=== PATIENT | female | born 1960 | race Caucasian/White ===

== ENCOUNTER 2018-08-30 11:39 | Day surgery (SDC) | payer OTHER ==
--- OUTSIDE RECORDS SUMMARY | 2018-08-30 11:41 | XMS REPORT ---
:1960 [facility] Address [address] [place] [address] Dr. Bassett [address] [place] [id number] Care Team Providers Name Role Phone Unavailable Unavailable Unavailable Problems This patient has no known problems. Allergies, Adverse Reactions, Alerts This patient has no known allergies or adverse reactions. Medications This patient has no known medications.
[2018-08-30] MEDS ORDERED: NA CHLORIDE 0.9% 500 ML ONE (12:10)
[2018-08-30] MEDS ORDERED: PHENYLEPHRINE 10% OPTH 5ML ONE (12:10)
[2018-08-30] MEDS ORDERED: TETRACAINE HCL 0.5% 2ML OPTH ONE (12:12)
[2018-08-30] MEDS ORDERED: CYCLOPENTOLATE 1% OPTH 2 ML ONE (12:12)
[2018-08-30] MEDS ORDERED: LIDOCAINE 2% MPF 5 ML VIAL ONE ×2 (12:12→12:51)
[2018-08-30] MEDS ORDERED: BUPIVACAINE 0.25% PF 30 ML VIAL ONE (12:13)
[2018-08-30 12:20] LABS: Protime INR 1.05
[2018-08-30] MEDS ORDERED: PHENYLEPHRINE 10% OPTH 5ML OPTH ONE ×2 (12:28→12:36)
[2018-08-30] MEDS ORDERED: CYCLOPENTOLATE 1% OPTH 2 ML OPTH ONE ×2 (12:28→12:36)
[2018-08-30] MEDS ORDERED: DUOVISC 1 KIT OPTH ONE (12:29)
[2018-08-30] MEDS ORDERED: NS 0.9% VIAL 10 ML ONE (12:29)
[2018-08-30] MEDS ORDERED: EPINEPHRINE/PF 1 MG/ML AMP ONE (12:29)
[2018-08-30] MEDS ORDERED: BALANCED SALT IRRIG PLAIN 500 ML BTL IRR ONE (12:29)
[2018-08-30] MEDS ORDERED: MOXIFLOXACIN HCL 10 DROPS/ML **OR USE OPTH ONE (12:30)
[2018-08-30] MEDS ORDERED: PROPOFOL 200 MG/20 ML VIAL IV ONE (12:50)
--- NOTE | 2018-08-30 14:15 | P.BOP ---
Preoperative diagnosis: Nuclear sclerotic cataract OS Postoperative diagnosis: Same Primary procedure: Phacoemulsification with IOL OS Estimated blood loss: None Anesthesia: Local (Subtenon's infusion with anesthesia for cataract surgery) Complications: None Implants: ZCB00 +15.0 Transferred to: Other (Day surgery) Condition: Good
[2018-08-30 14:26] VITALS: BP 99/78; TEMP 97.8; O2SAT 100
--- NOTE | 2018-08-31 01:31 | OP ---
Date of Procedure: 08/30/2018 Surgeon: Jackie Christy MD Anesthesiologist: Reginaldo Prater CRNA and Krish Ramirez MD. Preoperative Diagnosis: Nuclear sclerotic cataract, left eye. Operation Performed: Phacoemulsification with intraocular lens implant, left eye. Anesthesia: Per cataract surgery. Complications: None. Description Of Procedure: In day surgery, the patient was prepped with Betadine and draped. A conju nctival incision was made in the inferior nasal quadrant with Colin scissors. A sub-Tenon block c onsisting of a 1:1 mixture of 2% Xylocaine and 0.25% bupivacaine was placed through the conjunctival incision with a blunt cannula. A [place] balloon was placed over the eye and the patient was transferr ed to the operating room. In the operating room the patient was prepped and draped in the usual sterile fashion for ophthalmic surgery. A lid speculum was placed in the left eye. Two paracentesis sites were made superiorly and inferiorly in the limbal cornea. Viscoat was placed in the anterior chamber and a crescent blade wa s used to make a corneal groove and tunnel, and a keratome was used to enter the anterior chamber. P rovisc was placed in the anterior chamber and a 360 degree capsulotomy was performed with a cystitome . The lens was hydrodissected with BSS and rotated freely. The lens was removed with a stop and cho p technique. 18.12 phaco CDE was used to remove the lens. Residual cortex was removed with the irri gation and aspiration. Provisc was placed in the capsular bag. A ZCB00 +15.0 lens was placed in the capsular bag without complications. Irrigation and aspiration were used to remove residual viscoela stic. The paracentesis sites were hydrated with BSS. The wound and paracentesis sites were inspecte d and found to be watertight. Vigamox 0.07 cc was placed intracamerally at the end of the procedure. The eye was irrigated with balanced salt solution. The eye was patched with a soft cotton patch an d Wagoner metal shield. The patient was returned to day surgery in good condition. Comments: Discharge Instructions: Ms. Frias is discharged to home in good condition and is to follow up with Dr. Christy in the morning. JOSÉ/KARI Voice ID: [id number] Report ID: [id number]
== END 2018-08-30 14:58 | disposition home or self-care (01) ==
LOC: OR 11:39
PROVIDERS: ATTEND Ophthalmology Retina Specialist
PROC: 08RK3JZ Replacement of Left Lens with Synthetic Substitute, Percutaneous Approach (ICD-10-PCS; principal; 2018-08-30 12:00)
DX: H25.12 Age-related nuclear cataract, left eye (principal); E11.9 Type 2 diabetes mellitus without complications; I10 Essential (primary) hypertension; I48.91 Unspecified atrial fibrillation; E78.5 Hyperlipidemia, unspecified; E07.9 Disorder of thyroid, unspecified; F32.9 Major depressive disorder, single episode, unspecified; Z79.01 Long term (current) use of anticoagulants; Z88.6 Allergy status to analgesic agent; Z83.3 Family history of diabetes mellitus; Z80.9 Family history of malignant neoplasm, unspecified; Z83.518 Family history of other specified eye disorder
CPT/HCPCS: 36415; 82962; 84132; 85610; J0171; J2704

== ENCOUNTER 2019-01-11 18:18 | Emergency (ER) | payer OTHER, SELFPAY ==
--- OUTSIDE RECORDS SUMMARY | 2019-01-11 18:19 | XMS REPORT ---
:1960 [facility] Address [address] [place] [address] Dr. Bass[address] [place] [id number] Care Team Providers Name Role Phone Unavailable Unavailable Unavailable Problems This patient has no known problems. Allergies, Adverse Reactions, Alerts This patient has no known allergies or adverse reactions. Medications This patient has no known medications.
[2019-01-11 18:51] LABS: Absolute Lymphocytes (CBC) 2.6 K/uL (0.7-4.9); Absolute Monocytes 0.9 K/uL (0.1-1.3); Absolute Neutrophil 3.9 K/uL (1.8-8.0); Basophils % 1.5 % (0-1.3); Hematocrit 45.9 % (36.0-45.0); Lymphocytes % 33.2 % (15.3-44.8); MPV 9.5 fL (7.6-11.3); Monocytes % 11.1 % (3.3-12.3); RBC Red Blood Cell Count 5.01 M/uL (3.86-4.86)
[2019-01-11 18:54] LABS: Protime INR 1.26
[2019-01-11 19:15] LABS: ALT/SGPT 26 U/L (12-78); AST/SGOT 19 U/L (15-37); Alkaline Phosphatase 109 U/L (45-117); BUN Blood Urea Nitrogen 12 mg/dL (7-18); Bicarbonate 31 mmol/L (21-32); Bilirubin Direct 0.2 mg/dL (0-0.2); Bilirubin Total 0.8 mg/dL (0.2-1.0); Glucose Level 93 mg/dL (74-106); Magnesium 2.3 mg/dL (1.8-2.4); NT PRO-BNP 280 pg/mL (<125); Potassium 3.9 mmol/L (3.5-5.1); Protein, Total 8.1 g/dL (6.4-8.2); Sodium Level 144 mmol/L (136-145); Troponin (Emerg Dept Use Only) < 0.02 ng/mL (0.0-0.045)
--- NOTE | 2019-01-11 19:44 | RAD REPORT ---
EXAM DESCRIPTION: RAD - Chest Single View - 01/11/2019 7:11 pm CLINICAL HISTORY: Chest pain COMPARISON: July 2008 TECHNIQUE: AP portable chest image was obtained 1907 hours . FINDINGS: No focal lung parenchymal process. Lung markings similar to comparison. Heart size upper n ormal. No vascular engorgement. Heart size is similar comparison. No measurable pleural effusion and no pneumothorax. No acute bony abnormality seen. No acute aortic findings suspected. IMPRESSION: No acute cardiopulmonary process. No significant change comparison.
--- NOTE | 2019-01-11 20:58 | EDPHYS ---
Physician Documentation [facility] Name: Loren Frias Age: 58 yrs Sex: Female : 1960 Arrival Date: 01/11/2019 Time: 18:21 Bed 7 Private MD: Elise Hernandez H ED Physician Enrique Stevenson HPI: 01/12 01:34 This 58 yrs old Female presents to ER via Wheelchair with complaints of tw4 Palpitations. 01:34 The patient presents with a history of heart skipping beats. Context: The symptoms tw4 occur at rest. Onset: The symptoms/episode began/occurred today. Duration: The patient or guardian reports a single episode, that is still ongoing, but improving. Modifying factors: The symptoms are aggravated by nothing. The symptoms are alleviated by nothing. Associated signs and symptoms: The patient has no apparent associated signs or symptoms. The patient has not experienced similar symptoms in the past. Historical: - Allergies: 01/11 18:41 cinnamint; tw2 18:41 Morphine; tw2 18:41 Sinemet; tw2 - Home Meds: 18:41 Klor-Con M20 20 mEq Oral TbTQ 1 tab 2 times per day [Active]; Lasix 80 mg Oral tab 1 tw2 tab once daily [Active]; magnesium oxide 400 mg Oral cap twice a day [Active]; lisinopril 5 mg Oral tab 1 tab once daily [Active]; Multaq 400 mg Oral tab 1 tab 2 times per day [Active]; Synthroid 175 mcg Oral tab 1 tab once daily [Active]; Xarelto 20 mg Oral tab 1 tab once daily [Active]; melatonin 10 mg oral cap [Active]; Lopressor 50 mg Oral tab 1 tab 2 times per day [Active]; trulicity once a week [Active]; Tresiba FlexTouch U-100 100 unit/mL (3 mL) subcutaneous inpn [Active]; gabapentin 100 mg oral cap 3 caps 3 times per day [Active]; Metformin Oral [Active]; Lipitor 40 mg Oral tab 1 tab once daily [Active]; - PMHx: 18:41 Diabetes - IDDM; High Cholesterol; Hypertension; Atrial Fib; Hypothyroidism; tw2 - PSHx: 18:41 Cholecystectomy; Hysterectomy; Hernia repair; Lap Band; tw2 - Immunization history:: Adult Immunizations. - Social history:: Smoking status: . - Ebola Screening: : Patient denies travel to an Ebola-affected area in the 21 days before illness onset. ROS: 01/12 01:34 Constitutional: Negative for fever, chills, and weight loss, Eyes: Negative for injury, tw4 pain, redness, and discharge, ENT: Negative for injury, pain, and discharge, Respiratory: Negative for shortness of breath, cough, wheezing, and pleuritic chest pain, Abdomen/GI: Negative for abdominal pain, nausea, vomiting, diarrhea, and constipation, Back: Negative for injury and pain, MS/Extremity: Negative for injury and deformity, Skin: Negative for injury, rash, and discoloration, Neuro: Negative for headache, weakness, numbness, tingling, and seizure. Cardiovascular: Positive for palpitations, Negative for chest pain, edema, orthopnea. Exam: 01:34 Constitutional: This is a well developed, well nourished patient who is awake, alert, tw4 and in no acute distress. Head/Face: Normocephalic, atraumatic. Chest/axilla: Normal chest wall appearance and motion. Nontender with no deformity. No lesions are appreciated. Respiratory: Lungs have equal breath sounds bilaterally, clear to auscultation and percussion. No rales, rhonchi or wheezes noted. No increased work of breathing, no retractions or nasal flaring. Abdomen/GI: Soft, non-tender, with normal bowel sounds. No distension or tympany. No guarding or rebound. No evidence of tenderness throughout. Back: No spinal tenderness. No costovertebral tenderness. Full range of motion. MS/ Extremity: Pulses equal, no cyanosis. Neurovascular intact. Full, normal range of motion. Neuro: Awake and alert, GCS 15, oriented to person, place, time, and situation. Cranial nerves II-XII grossly intact. Motor strength 5/5 in all extremities. Sensory grossly intact. Cerebellar exam normal. Normal gait. 01:34 Cardiovascular: Rate: normal, Rhythm: irregular, Pulses: no pulse deficits are appreciated. Vital Signs: 01/11 18:37 BP 146 / 76; Pulse 74; Resp 19; Temp 97.4(TE); Pulse Ox 98% on R/A; Weight 117.93 kg tw2 (R); Height 5 ft. 5 in. (165.10 cm); Pain 0/10; 19:09 BP 127 / 63; Pulse 68; Resp 20; Pulse Ox 98% on R/A; Pain 0/10; aa1 20:00 BP 120 / 74; Pulse 68; Resp 18; Pulse Ox 96% on R/A; Pain 0/10; aa1 21:12 BP 120 / 61; Pulse 67; Resp 18; Temp 97.7; Pulse Ox 97% on R/A; Pain 0/10; aa1 18:37 Body Mass Index 43.27 (117.93 kg, 165.10 cm) tw2 MDM: 19:33 Patient medically screened. tw4 01/12 01:37 Differential diagnosis: arrythmia. Data reviewed: vital signs, nurses notes. Data tw4 interpreted: air sampling and monitoring: rhythm is normal sinus rhythm. Test interpretation: by ED physician or midlevel provider: ECG. Counseling: I had a detailed discussion with the patient and/or guardian regarding: the historical points, exam findings, and any diagnostic results supporting the discharge/admit diagnosis. Special discussion: I discussed with the patient/guardian in detail that at this point there is no indication for admission to the hospital. It is understood, however, that if the symptoms persist or worsen the patient needs to return immediately for re-evaluation. ED course: Pt rested comfortably on the stretcher in the ED had no additional complaints.. 01/11 18:34 Order name: Basic Metabolic Panel; Complete Time: 20:19 sv 01/11 20:19 Interpretation: Normal except: GFR 51. tw01/11 18:34 Order name: CBC with Diff; Complete Time: 20:19 sv 01/11 20:19 Interpretation: Normal except: RBC 5.01; HGB 15.2; HCT 45.9; RDW 15.7; BASO% 1.5. tw01/11 18:34 Order name: LFT's; Complete Time: 20:19 sv 01/11 20:19 Interpretation: Normal except: GLOB 4.1; A/G 1.0. tw01/11 18:34 Order name: Magnesium; Complete Time: 20:19 sv 01/11 20:20 Interpretation: Within normal limits: MG 2.3. tw01/11 18:34 Order name: NT PRO-BNP; Complete Time: 20:19 sv 30 20:19 Interpretation: Abnormal: NT PRO-BNP 280. tw4 01/11 18:34 Order name: PT-INR; Complete Time: 20:19 sv 30 20:19 Interpretation: Normal except: PT 14.7. tw4 01/11 18:34 Order name: Troponin (emerg Dept Use Only); Complete Time: 20:20 sv 01/11 20:20 Interpretation: Within normal limits: TROPED < 0.02. tw4 01/11 18:34 Order name: XRAY Chest (1 view); Complete Time: 20:20 sv 01/11 18:34 Order name: EKG; Complete Time: 18:35 sv 01/11 18:34 Order name: Cardiac monitoring; Complete Time: 18:52 sv 01/11 18:34 Order name: EKG - Nurse/Tech; Complete Time: 18:52 sv 01/11 18:34 Order name: IV Saline Lock; Complete Time: 18:52 sv 01/11 18:34 Order name: Labs collected and sent; Complete Time: 18:52 sv 01/11 18:34 Order name: O2 Per Protocol; Complete Time: 18:52 sv 01/11 18:34 Order name: O2 Sat Monitoring; Complete Time: 18:52 sv EC:37 Rate is 56 beats/min. Rhythm is regular, Normal Sinus Rhythm with Occasional PVCs. QRS tw4 [place] is Normal. [place] interval is normal. QRS interval is normal. QT interval is normal. No Q waves. T waves are Normal. No ST changes noted. Clinical impression: Normal ECG. Interpreted by me. Reviewed by me. Administered Medications: No medications were administered Disposition: 01/11/19 20:58 Discharged to Home. Impression: Ventricular premature depolarization, Palpitations. - Condition is Stable. - Discharge Instructions: Palpitations, Premature Ventricular Contraction. - Medication Reconciliation Form, Thank You Letter, Antibiotic Education, Prescription Opioid Use form. - Follow up: Elise Hernandez DO; When: Upon discharge from the Emergency Department; Reason: If symptoms return, Recheck today's complaints, Continuance of care. - Problem is new. - Symptoms have improved. Signatures: Dispatcher [employer] EDRadha Perez RN RN sv Leanne Gallardo RN RN aa1 Justina Ashton RN RN tw2 Enrique Stevenson MD MD tw4 Corrections: (The following items were deleted from the chart) 01/11 21:14 20:58 01/11/2019 20:58 Discharged to Home. Impression: Ventricular premature aa1 depolarization; Palpitations. Condition is Stable. Forms are Medication Reconciliation Form, Thank You Letter, Antibiotic Education, Prescription Opioid Use. Follow up: Elise Hernandez; When: Upon discharge from the Emergency Department; Reason: If symptoms return, Recheck today's complaints, Continuance of care. Problem is new. Symptoms have improved. tw4
--- NOTE | 2019-01-11 20:58 | ER ---
Nurse's Notes [facility] Name: Loren Frias Age: 58 yrs Sex: Female : 1960 Arrival Date: 01/11/2019 Time: 18:21 Bed 7 Private MD: Elise Hernandez H Diagnosis: Ventricular premature depolarization;Palpitations Presentation: 01/11 18:30 Presenting complaint: Patient states: it started the last day or so ago, and it tw2 resolved himself, but today it started again around 4pm, my chest feels weird, pt denies pain or sob. Presenting complaint: Child states: "my dad one month ago as well". Transition of care: patient was not received from another setting of care. Onset of symptoms was January 11, 2019. Risk Assessment: Do you want to hurt yourself or someone else? Patient reports no desire to harm self or others. Initial Sepsis Screen: Does the patient meet any 2 criteria? No. Patient's initial sepsis screen is negative. Does the patient have a suspected source of infection? No. Patient's initial sepsis screen is negative. Care prior to arrival: None. 18:30 Method Of Arrival: Wheelchair tw2 18:30 Acuity: ALLA 3 tw2 Triage Assessment: 18:37 General: Appears in no apparent distress. obese, well groomed, Behavior is calm, tw2 cooperative, appropriate for age. Pain: Denies pain. Cardiovascular: Reports palpitations. Historical: - Allergies: 18:41 cinnamint; tw2 18:41 Morphine; tw2 18:41 Sinemet; tw2 - Home Meds: 18:41 Klor-Con M20 20 mEq Oral TbTQ 1 tab 2 times per day [Active]; Lasix 80 mg Oral tab 1 tw2 tab once daily [Active]; magnesium oxide 400 mg Oral cap twice a day [Active]; lisinopril 5 mg Oral tab 1 tab once daily [Active]; Multaq 400 mg Oral tab 1 tab 2 times per day [Active]; Synthroid 175 mcg Oral tab 1 tab once daily [Active]; Xarelto 20 mg Oral tab 1 tab once daily [Active]; melatonin 10 mg oral cap [Active]; Lopressor 50 mg Oral tab 1 tab 2 times per day [Active]; trulicity once a week [Active]; Tresiba FlexTouch U-100 100 unit/mL (3 mL) subcutaneous inpn [Active]; gabapentin 100 mg oral cap 3 caps 3 times per day [Active]; Metformin Oral [Active]; Lipitor 40 mg Oral tab 1 tab once daily [Active]; - PMHx: 18:41 Diabetes - IDDM; High Cholesterol; Hypertension; Atrial Fib; Hypothyroidism; tw2 - PSHx: 18:41 Cholecystectomy; Hysterectomy; Hernia repair; Lap Band; tw2 - Immunization history:: Adult Immunizations. - Social history:: Smoking status: . - Ebola Screening: : Patient denies travel to an Ebola-affected area in the 21 days before illness onset. Screenin:41 Abuse screen: Denies threats or abuse. Nutritional screening: No deficits noted. tw2 Tuberculosis screening: No symptoms or risk factors identified. Fall Risk Secondary diagnosis (15 points) impaired mobility. Assessment: 18:40 General: Appears in no apparent distress. Behavior is calm, cooperative. Pain: Denies hb pain. Neuro: Level of Consciousness is awake, alert, obeys commands, Oriented to person, place, time, situation. Cardiovascular: Heart tones S1 S2 present Capillary refill < 3 seconds Patient's skin is warm and dry. Rhythm is sinus rhythm with multifocal PVCs. Respiratory: Airway is patent Respiratory effort is even, unlabored, Respiratory pattern is regular, symmetrical, Breath sounds are clear bilaterally. GI: No signs and/or symptoms were reported involving the gastrointestinal system. : No signs and/or symptoms were reported regarding the genitourinary system. EENT: No signs and/or symptoms were reported regarding the EENT system. Derm: Skin is intact, is healthy with good turgor. Musculoskeletal: No signs and/or symptoms reported regarding the musculoskeletal system. 19:09 Reassessment: Patient appears in no apparent distress at this time. Patient and/or aa1 family updated on plan of care and expected duration. Pain level reassessed. Patient is alert, oriented x 3, equal unlabored respirations, skin warm/dry/pink. Pt awaiting initial assessment from ER provider Patient denies pain at this time. 20:35 Reassessment: Patient appears in no apparent distress at this time. Patient and/or aa1 family updated on plan of care and expected duration. Pain level reassessed. Patient is alert, oriented x 3, equal unlabored respirations, skin warm/dry/pink. Awaiting provider reassessment. 21:12 Reassessment: Patient appears in no apparent distress at this time. Patient is alert, aa1 oriented x 3, equal unlabored respirations, skin warm/dry/pink. Discussed d/c \\T\\ f/u instructions with pt \\T\\ family; denies questions or concerns at this time. Ambulates to lobby with steady gait. Patient denies pain at this time. Patient states feeling better. Vital Signs: 18:37 BP 146 / 76; Pulse 74; Resp 19; Temp 97.4(TE); Pulse Ox 98% on R/A; Weight 117.93 kg tw2 (R); Height 5 ft. 5 in. (165.10 cm); Pain 0/10; 19:09 BP 127 / 63; Pulse 68; Resp 20; Pulse Ox 98% on R/A; Pain 0/10; aa1 20:00 BP 120 / 74; Pulse 68; Resp 18; Pulse Ox 96% on R/A; Pain 0/10; aa1 21:12 BP 120 / 61; Pulse 67; Resp 18; Temp 97.7; Pulse Ox 97% on R/A; Pain 0/10; aa1 18:37 Body Mass Index 43.27 (117.93 kg, 165.10 cm) tw2 ED Course: 18:21 Patient arrived in ED. mr 18:21 Elise Hernandez DO is Private Physician. mr 18:30 Placed in gown. Adult w/ patient. hall monitor on. Pulse ox on. NIBP on. tw2 18:37 Triage completed. tw2 18:37 Arm band placed on. tw2 18:40 Inserted saline lock: 22 gauge in right antecubital area, using aseptic technique. hb Blood collected. 18:49 Mary Tapia, JULIO CESAR is Primary Nurse. hb 19:07 X-ray completed. Portable x-ray completed in exam room. Patient tolerated procedure mh1 well. 19:10 XRAY Chest (1 view) In Process Unspecified. EDMS 19:23 Enrique Stevenson MD is Attending Physician. tw4 20:57 Elise Hernandez DO is Referral Physician. tw4 21:12 No provider procedures requiring assistance completed. IV discontinued, intact, aa1 bleeding controlled, No redness/swelling at site. Pressure dressing applied. Administered Medications: No medications were administered Outcome: 20:58 Discharge ordered by . tw4 21:12 Discharged to home ambulatory, with family. aa1 21:12 Condition: good 21:12 Discharge instructions given to patient, family, Instructed on discharge instructions, follow up and referral plans. Demonstrated understanding of instructions, follow-up care. 21:14 Patient left the ED. aa1 Signatures: Dispatcher [employer] EDMS Leanne Gallardo RN RN aa1 Mary Grace Joaquin mr RockDi 1 Mary Tapia RN RN Justina Ashton RN RN tw2 Enrique Stevenson MD MD tw4
[2019-01-11 21:19] VITALS: TEMP 97.4
[2019-01-11 21:22] VITALS: BP 120/74; O2SAT 96
--- NOTE | 2019-01-12 16:52 | EKG ---
Test Date: 2019-01-11 Test Time: 18:41:02 Mail Sorter: MEASUREMENT RESULTS: Intervals: Rate: 71 FL: 156 QRSD: 74 QT: 424 QTc: 460 [place]: P: 41 FL: 156 QRS: 14 T: 18 INTERPRETIVE STATEMENTS: Sinus rhythm with frequent premature ventricular complexes Otherwise normal ECG Compared to ECG 11/30/2013 18:22:41 Ventricular premature complex(es) now present Sinus bradycardia no longer present Electronically Signed On 01-12-19 16:50:59 CDT by Agustín Mata
== END 2019-01-11 21:14 | disposition home or self-care (01) ==
LOC: ER 18:18
DX: I49.3 Ventricular premature depolarization (principal); I10 Essential (primary) hypertension; E11.9 Type 2 diabetes mellitus without complications; Z79.4 Long term (current) use of insulin; I48.91 Unspecified atrial fibrillation; E03.9 Hypothyroidism, unspecified; Z79.01 Long term (current) use of anticoagulants; Z88.5 Allergy status to narcotic agent; Z88.8 Allergy status to other drugs, medicaments and biological substances; Z91.018 Allergy to other foods
CPT/HCPCS: 36415; 71045; 80048; 80076; 83735; 83880; 84484; 85025; 85610; 93005; 99284

== ENCOUNTER 2021-03-20 12:07 | Inpatient (IN) | payer OTHER ==
--- NOTE | 2021-03-20 13:20 | RAD REPORT ---
EXAM DESCRIPTION: RAD - Chest Single View - 03/20/2021 1:10 pm CLINICAL HISTORY: SOB COMPARISON: Chest Single View dated 01/11/2019; Chest Pa And Lat (2 Views) dated 07/28/2018; CHEST SI NGLE VIEW dated 11/30/2013; CHEST SINGLE VIEW dated 06/26/2012 FINDINGS: Cardiomegaly. Increased prominence of the pulmonary vasculature. No fractures seen. No foc al consolidative airspace disease. IMPRESSION: Vascular congestion without overt edema.
[2021-03-20 13:39] LABS: Protime INR 1.03
[2021-03-20 13:46] LABS: Absolute Lymphocytes (CBC) 0.5 K/uL (0.7-4.9); Basophils % 0.2 % (0-1.3); Hematocrit 43.4 % (36.0-45.0); Lymphocytes % 9.3 % (15.3-44.8); MPV 9.8 fL (7.6-11.3); RBC Red Blood Cell Count 4.63 M/uL (3.86-4.86)
[2021-03-20 13:47] LABS: Albumin 3.6 g/dL (3.4-5.0); Bilirubin Direct 0.3 mg/dL (0-0.2); Bilirubin Total 0.9 mg/dL (0.2-1.0); Magnesium 1.9 mg/dL (1.8-2.4); Potassium 4.2 mmol/L (3.5-5.1); Protein, Total 7.9 g/dL (6.4-8.2); Troponin (Emerg Dept Use Only) 0.12 ng/mL (0.0-0.045)
--- OUTSIDE RECORDS SUMMARY | 2021-03-20 15:29 | XMS REPORT | Continuity of Care Document ---
:1960 Author Organization [facility] t Address [address] [place] [address] Care Team Providers Name Role Phone Lab, Fam Pob I Attending Clinician Unavailable Angelique COX, S Attending Clinician Problems This patient has no known problems. Allergies, Adverse Reactions, Alerts This patient has no known allergies or adverse reactions. Medications This patient has no known medications. Procedures This patient has no known procedures. Encounters Start End Encounter Admission Attending Care Care Encounter Source Date/Time Date/Time Type Type Clinicians Facility Department ID 2021-03-20 2021-03-20 Laboratory Lab, [facility] [id number] 11:13:01 11:33:01 Only Fam P[facility] I [facility] [id number] [place] [id number] Professio [id number] nal [address] 2021-03-08 2021-03-08 [facility] [id number] 11:11:12 23:59:00 [facility]counter [facility] [id number] [facility] [id number] Specialti [id number] es [address] [place] 2021-03-08 2021-03-08 Office [facility] [id number] 10:48:33 11:03:33 Visit [facility] [id number] Surgical [id number] Specialti [id number] es 198 [place] Results This patient has no known results.
--- NOTE | 2021-03-20 15:41 | EDPHYS ---
Physician Documentation [facility] Name: Loren Frias Age: 60 yrs Sex: Female : 1960 Arrival Date: 03/20/2021 Time: 12:12 Bed 6 Private MD: ED Physician Sacha Zee HPI: 03/20 14:36 This 60 yrs old Female presents to ER via Wheelchair with complaints of kdr Shortness Of Breath. 14:36 The patient has shortness of breath with light activity. Onset: The symptoms/episode kdr began/occurred gradually, 1 week(s) ago. Duration: The symptoms are intermittent. The patient's shortness of breath is aggravated by exertion, light activity, is alleviated by rest. 03/21 12:04 Associated signs and symptoms: Pertinent positives: diaphoresis, Pertinent negatives: kdr chest pain, dizziness, fever, hemoptysis, loss of consciousness, numbness in extremities, visual changes, vomiting. Severity of symptoms: At their worst the symptoms were mild moderate just prior to arrival, in the emergency department the symptoms are unchanged. The patient has not experienced similar symptoms in the past. The patient has not recently seen a physician. Many of the members of the patient's family have had COVID and she is concerned that she may now have COVID. Historical: - Allergies: 03/20 12:28 Morphine; ll1 12:28 Sinemet; ll1 - PMHx: 12:28 Atrial Fib; Diabetes - IDDM; High Cholesterol; Hypertension; Hypothyroidism; ll1 - Immunization history:: Client reports having NOT received the Covid vaccine. Flu vaccine is up to date. - Social history:: Smoking status: Patient denies any tobacco usage or history of. ROS: 03/21 12:04 Constitutional: Negative for fever, chills, and weight loss, Eyes: Negative for injury, kdr pain, redness, and discharge, ENT: Negative for injury, pain, and discharge, Neck: Negative for injury, pain, and swelling, Cardiovascular: Negative for chest pain, palpitations, and edema, Abdomen/GI: Negative for abdominal pain, nausea, vomiting, diarrhea, and constipation, Back: Negative for injury and pain, : Negative for injury, bleeding, discharge, and swelling, MS/Extremity: Negative for injury and deformity, Skin: Negative for injury, rash, and discoloration, Neuro: Negative for headache, weakness, numbness, tingling, and seizure activity. Psych: Negative for depression, anxiety, suicide ideation, homicidal ideation, and hallucinations, Allergy/Immunology: Negative for hives, rash, and allergies, Endocrine: Negative for neck swelling, polydipsia, polyuria, polyphagia, and marked weight changes. Respiratory: Positive for dyspnea on exertion, shortness of breath, When seen at urgent care, she was informed that she had low oxygen saturation but she did not know how low. Exam: 03/20 15:05 ECG was reviewed by the Attending Physician. kdr 03/21 12:04 Constitutional: This is a well developed, well nourished patient who is awake, alert, kdr and in no acute distress. Head/Face: Normocephalic, atraumatic. Eyes: Pupils equal round and reactive to light, extra-ocular motions intact. Lids and lashes normal. Conjunctiva and sclera are non-icteric and not injected. Cornea within normal limits. Periorbital areas with no swelling, redness, or edema. Neck: Trachea midline, no thyromegaly or masses palpated, and no cervical lymphadenopathy. Supple, full range of motion without nuchal rigidity, or vertebral point tenderness. No Meningismus. Chest/axilla: Normal chest wall appearance and motion. Nontender with no deformity. No lesions are appreciated. Cardiovascular: Regular rate and rhythm with a normal S1 and S2. No gallops, murmurs, or rubs. Normal PMI, no JVD. No pulse deficits. Abdomen/GI: Soft, non-tender, with normal bowel sounds. No distension or tympany. No guarding or rebound. No evidence of tenderness throughout. Back: No spinal tenderness. No costovertebral tenderness. Full range of motion. Skin: Warm, dry with normal turgor. Normal color with no rashes, no lesions, and no evidence of cellulitis. MS/ Extremity: Pulses equal, no cyanosis. Neurovascular intact. Full, normal range of motion. Neuro: Awake and alert, GCS 15, oriented to person, place, time, and situation. Cranial nerves II-XII grossly intact. Motor strength 5/5 in all extremities. Sensory grossly intact. Cerebellar exam normal. Normal gait. Psych: Awake, alert, with orientation to person, place and time. Behavior, mood, and affect are within normal limits. Respiratory: the patient does not display signs of respiratory distress, Respirations: normal, Breath sounds: rales, that are mild, are located in both bases, stridor, is not appreciated, wheezing: is not appreciated. Vital Signs: 03/20 12:26 BP 153 / 78; Pulse 104; Resp 20; Temp 99.8; Pulse Ox 95% ; Weight 120.2 kg; Height 5 ll1 ft. 4 in. (162.56 cm); Pain 0/10; 13:59 BP 139 / 82; Pulse 104; Resp 20 S; Pulse Ox 93% on R/A; jd3 15:05 BP 144 / 90; Pulse 105; Resp 21 S; Pulse Ox 96% on R/A; jd3 17:21 BP 135 / 61; Pulse 109; Resp 20 S; Pulse Ox 93% on R/A; jd3 12:26 Body Mass Index 45.49 (120.20 kg, 162.56 cm) ll1 MDM: 15:40 Patient medically screened. kdr 03/21 12:04 Data reviewed: vital signs, nurses notes, lab test result(s), radiologic studies. kdr Counseling: I had a detailed discussion with the patient and/or guardian regarding: the historical points, exam findings, and any diagnostic results supporting the discharge/admit diagnosis, lab results, radiology results, the need for further work-up and treatment in the hospital. 03/20 12:42 Order name: Basic Metabolic Panel; Complete Time: 14:35 kdr 03/20 12:42 Order name: CBC with Diff; Complete Time: 14:35 kdr 03/20 12:42 Order name: LFT's; Complete Time: 14:35 kdr 03/20 12:42 Order name: Magnesium; Complete Time: 14:35 kdr 03/20 12:42 Order name: NT PRO-BNP; Complete Time: 14:35 kdr 03/20 12:42 Order name: PT-INR; Complete Time: 14:35 kdr 03/20 12:42 Order name: Troponin (emerg Dept Use Only); Complete Time: 14:35 kdr 03/20 13:11 Order name: COVID-19 : Document "Date of Symptom Onset" if Symptomatic. jd3 03/20 15:18 Order name: SARS-COV-2 RT PCR; Complete Time: 00:02 EDMS 03/20 15:28 Order name: C-Reactive Protein; Complete Time: 00:02 EDMS 03/20 15:28 Order name: Ferritin; Complete Time: 00:02 EDMS 03/20 18:13 Order name: Glucose, Ancillary Testing; Complete Time: 00:02 EDMS 03/20 18:45 Order name: Creatine Phosphokinase; Complete Time: 00:02 EDMS 03/20 18:45 Order name: CKMB Creatine Kinase MB; Complete Time: 00:02 EDMS 03/20 18:45 Order name: Troponin I; Complete Time: 00:02 EDMS 03/20 18:57 Order name: Procalcitonin; Complete Time: 00:02 EDMS 03/20 21:41 Order name: Glucose, Ancillary Testing; Complete Time: 00:02 EDMS 03/21 00:43 Order name: Glucose, Ancillary Testing; Complete Time: 12:09 EDMS 03/21 01:29 Order name: Glucose Level; Complete Time: 12:09 EDMS 03/21 03:29 Order name: Glucose Level; Complete Time: 12:09 EDMS 03/21 04:34 Order name: CBC with Automated Diff; Complete Time: 12:09 EDMS 03/21 05:09 Order name: Creatine Phosphokinase; Complete Time: 12:09 EDMS 03/21 05:09 Order name: CKMB Creatine Kinase MB; Complete Time: 12:09 EDMS 03/21 05:09 Order name: Troponin I; Complete Time: 12:09 EDMS 03/21 06:53 Order name: Basic Metabolic Panel; Complete Time: 12:09 EDMS 03/21 06:53 Order name: Lipid Profile; Complete Time: 12:09 EDMS 03/21 06:53 Order name: T4 Free; Complete Time: 12:09 EDMS 03/21 06:53 Order name: Magnesium; Complete Time: 12:09 EDMS 03/21 06:53 Order name: Thyroid Stimulating Hormone; Complete Time: 12:09 EDMS 03/20 12:42 Order name: XRAY Chest (1 view); Complete Time: 14:35 kdr 03/20 12:42 Order name: EKG; Complete Time: 12:43 kdr 03/20 12:42 Order name: Cardiac monitoring; Complete Time: 12:47 kdr 03/20 12:42 Order name: EKG - Nurse/Tech; Complete Time: 13:41 kdr 03/20 12:42 Order name: IV Saline Lock; Complete Time: 13:10 kdr 03/20 12:42 Order name: Labs collected and sent; Complete Time: 13:10 kdr 03/20 12:42 Order name: O2 Per Protocol; Complete Time: 12:47 kdr 03/20 12:42 Order name: O2 Sat Monitoring; Complete Time: 12:47 kdr 03/21 07:50 Order name: RAD; Complete Time: 12:09 EDMS EC/07 15:05 Rate is 109 beats/min. Rhythm is regular, Sinus tachycardia with No ectopy. QRS [place] is kdr Normal. AL interval is normal. QRS interval is normal. QT interval is normal. Clinical impression: Sinus tachycardia. Administered Medications: No medications were administered Disposition Summary: 03/20/21 15:40 Hospitalization Ordered Hospitalization Status: Observation kdr Provider: Claudy Varner Condition: Fair kdr Problem: new kdr Symptoms: have improved kdr Bed/Room Type: Standard kdr Location: Intensive Care Unit(03/21/21 06:20) tl1 Room Assignment: 1-(03/21/21 06:20) tl1 Diagnosis - Heart failure, unspecified kdr - Shortness of breath kdr - SARS-associated coronavirus as the cause of diseases classified elsewhere kdr Forms: - Medication Reconciliation Form kdr - SBAR form kdr Signatures: Dispatcher [employer] EDWV Sacha Zee MD MD kdr Eloise Cardona RN RN ss Augustine Huynh, CLIENT SERVICES REPRESENTATIVE-C CLIENT SERVICES REPRESENTATIVE-Cla1 Yasmeen Buitrago RN RN tl1 Dick Walton RN RN 1 Corrections: (The following items were deleted from the chart) 14:11 13:12 CORONAVIRUS ordered. EDWV EDWV 16:46 15:40 Telemetry/MedSurg (observation) kdr 16:46 15:40 kdr 03/21 06:20 03/20 16:46 [facility] ER HOLD ss tl1 03/21 06:20 03/20 16:46 ERHOLD- ss tl1
--- NOTE | 2021-03-20 15:41 | ER ---
Nurse's Notes [facility] Name: Loren Frias Age: 60 yrs Sex: Female : 1960 Arrival Date: 03/20/2021 Time: 12:12 Bed 6 Private MD: Diagnosis: Heart failure, unspecified;Shortness of breath;SARS-associated coronavirus as the cause of diseases classified elsewhere Presentation: 03/20 12:26 Chief complaint: Patient states: Cough and SOB since Thursday night. No known fever. Went ll1 to [facility] this morning, was sent in for eval. Had low O2 sats but she doesn't know how low. Coronavirus screen: Client denies travel out of the [place] in the last 14 days. chills, cough unrelated to allergies, difficulty breathing, fatigue, shortness of breath, Client presents with at least one sign or symptom that may indicate coronavirus-19. Standard/surgical mask placed on the client. Ebola Screen: Patient denies travel to an Ebola-affected area in the 21 days before illness onset. Initial Sepsis Screen: Does the patient meet any 2 criteria? HR > 90 bpm. No. Patient's initial sepsis screen is negative. Does the patient have a suspected source of infection? Yes: Productive cough/pneumonia. Risk Assessment: Do you want to hurt yourself or someone else? Patient reports no desire to harm self or others. Onset of symptoms was March 17, 2021. 12:26 Method Of Arrival: Wheelchair ll1 12:26 Acuity: ALLA 3 ll1 Historical: - Allergies: 12:28 Morphine; ll1 12:28 Sinemet; ll1 - PMHx: 12:28 Atrial Fib; Diabetes - IDDM; High Cholesterol; Hypertension; Hypothyroidism; ll1 - Immunization history:: Client reports having NOT received the Covid vaccine. Flu vaccine is up to date. - Social history:: Smoking status: Patient denies any tobacco usage or history of. Screenin:02 Abuse screen: Denies threats or abuse. Nutritional screening: No deficits noted. jd3 Tuberculosis screening: No symptoms or risk factors identified. Fall Risk Ambulatory Aid- None/Bed Rest/Nurse Assist (0 pts). Gait- Normal/Bed Rest/Wheelchair (0 pts) Mental Status- Oriented to own ability (0 pts). Total Huerta Fall Scale indicates No Risk (0-24 pts). Assessment: 12:46 General: Appears in no apparent distress. uncomfortable, Behavior is calm, cooperative, jd3 appropriate for age. Pain: Complains of pain in back Quality of pain is described as aching. Neuro: Level of Consciousness is awake, alert, obeys commands, Oriented to person, place, time, situation. Cardiovascular: Capillary refill < 3 seconds Patient's skin is warm and dry. Rhythm is sinus tachycardia. Respiratory: Reports shortness of breath on exertion cough that is persistent Airway is patent Respiratory effort is even, unlabored, Respiratory pattern is regular, symmetrical. GI: Reports loss of appetite. : No signs and/or symptoms were reported regarding the genitourinary system. EENT: No signs and/or symptoms were reported regarding the EENT system. Derm: Skin is intact, Skin is dry, Skin is normal, Skin temperature is warm. Musculoskeletal: Circulation, motion, and sensation intact. Range of motion: intact in all extremities. 13:59 Reassessment: Patient appears in no apparent distress at this time. No changes from jd3 previously documented assessment. Patient and/or family updated on plan of care and expected duration. Pain level reassessed. Patient is alert, oriented x 3, equal unlabored respirations, skin warm/dry/pink. 15:05 Reassessment: Patient appears in no apparent distress at this time. Patient and/or jd3 family updated on plan of care and expected duration. Pain level reassessed. Patient is alert, oriented x 3, equal unlabored respirations, skin warm/dry/pink. hospitalist at bedside. 17:20 Reassessment: Patient appears in no apparent distress at this time. Patient and/or jd3 family updated on plan of care and expected duration. Pain level reassessed. Patient is alert, oriented x 3, equal unlabored respirations, skin warm/dry/pink. charting continued in [facility]. Vital Signs: 12:26 BP 153 / 78; Pulse 104; Resp 20; Temp 99.8; Pulse Ox 95% ; Weight 120.2 kg; Height 5 ll1 ft. 4 in. (162.56 cm); Pain 0/10; 13:59 BP 139 / 82; Pulse 104; Resp 20 S; Pulse Ox 93% on R/A; jd3 15:05 BP 144 / 90; Pulse 105; Resp 21 S; Pulse Ox 96% on R/A; jd3 17:21 BP 135 / 61; Pulse 109; Resp 20 S; Pulse Ox 93% on R/A; jd3 12:26 Body Mass Index 45.49 (120.20 kg, 162.56 cm) ll1 ED Course: 12:12 Patient arrived in ED. mr 12:28 Triage completed. ll1 12:28 Arm band placed on Patient placed in an exam room, on a stretcher. ll1 12:42 Sacha Zee MD is Attending Physician. kdr 12:46 Ike Bah, RN is Primary Nurse. jd3 13:10 XRAY Chest (1 view) In Process Unspecified. EDMS 13:10 Inserted saline lock: 22 gauge in right antecubital area, using aseptic technique. jd3 Blood collected. 14:02 Patient has correct armband on for positive identification. Bed in low position. Call jd3 light in reach. Side rails up X2. monitor worker on. Pulse ox on. NIBP on. 15:39 Claudy Varner DO is Hospitalizing Provider. kdr 17:21 No provider procedures requiring assistance completed. Patient admitted, IV remains in jd3 place. 19:11 Primary Nurse role handed off by Ike Bah RN eb Administered Medications: No medications were administered Outcome: 15:40 Decision to Hospitalize by Provider. kdr 17:21 Admitted to ER Hold. Please see [facility] for further documentation. jd3 17:21 Condition: stable 17:21 Instructed on the need for admit, Demonstrated understanding of instructions. 03/21 08:10 Patient left the ED. ll1 Signatures: Dispatcher [employer] EDMS Sacha Zee MD MD kdr Rivera, Mary mr Ike Bah, RN RN jJaney Anand Lynsay, RN RN 1
--- NOTE | 2021-03-20 16:14 | P.HP ---
Certification for Inpatient Patient admitted to: Observation With expected LOS: <2 Midnights Patient will require the following post-hospital care: None Practitioner: I am a practitioner with admitting privileges, knowledge of patient current condition, hospital course, and medical plan of care. Services: Services provided to patient in accordance with Admission requirements found in Title 42 Section 412.3 of the Code of Federal Regulations Patient History Date of Service: 03/20/21 Primary Care Provider: Dr. Hernandez Reason for admission: Shortness of breath History of Present Illness: 60-year-old female with history of atrial fibrillation on chronic anticoagulation therapy, diabetes mellitus type 2 insulin-dependent, hypertension, hypothyroidism, hyperlipidemia and CHF. Patient presented to the emergency room with increasing shortness of breath. She had gone to urgent care earlier and they noted that she was slightly hypoxic. Patient denies any fever, chills, nausea or vomiting. Several family embers have tested positive for Covid. She was worried that she had a Covid infection. She denies any significant chest pain. In the ER patient was evaluated. Vital signs stable. Patient on room air at this time. Chest x-ray shows some vascular congestion. White count 5.8, hemoglobin 14.7. Platelet count 123. Sodium 134, potassium 4.2. BUN of 11, creatinine 0.7 with a GFR 75. Glucose 344. Troponin 0 0.12 BNP 372. AST 32, ALT 28. CRP and ferritin pending. Patient was positive for Covid. EKG shows no significant ST changes. Patient admitted for further evaluation and treatment. Patient reports that she had been taking Lasix in the past but this was discontinued by cardiology. She also reports patient had cardiac stress test several months ago which was unremarkable. Allergies carbidopa [From Sinemet] Allergy (Mild, Verified 08/30/18 12:26) Hives levodopa [From Sinemet] Allergy (Mild, Verified 08/30/18 12:26) Hives morphine Adverse Reaction (Intermediate, Verified 08/30/18 12:26) VOMITING Home medications list reviewed: Yes Home Medications: Atorvastatin Calcium [Lipitor*] 40 mg PO BEDTIME 08/26/18 Cholecalciferol (Vitamin D3) [Vitamin D 1000 Iu Tab*] 1,000 unit PO BID 08/26/18 Dronedarone [Multaq*] 400 mg PO BID 08/26/18 Dulaglutide [Trulicity] 1.5 mg SQ EVERY 7TH DAY 08/26/18 Empagliflozin [Jardiance] 10 mg PO DAILY 08/26/18 Furosemide [Lasix] 80 mg PO DAILY 08/26/18 Insulin Degludec [Tresiba Flextouch U-100] 0 unit SQ DAILY 08/26/18 Levothyroxine Sodium [Synthroid] 150 mcg PO DAILY 08/26/18 Magnesium Oxide [Magnesium] 400 mg PO BID 08/26/18 Melatonin 5 mg PO BEDTIME 08/26/18 Metformin HCl [Metformin HCl ER] 750 mg PO BID 08/26/18 Metoprolol Tartrate [Lopressor*] 50 mg PO BID 08/26/18 Potassium Chloride [Klor-Con M20] 20 meq PO BID 08/26/18 Rivaroxaban [Xarelto*] 20 mg PO DAILY AFTER SUPPER 08/26/18 lisinopriL [Prinivil*] 5 mg PO [id number] 08/26/18 - Past Medical/Surgical History Diabetic: Yes -: Atrial fibrillation -: Chronic anticoagulation therapy -: Diabetes mellitus type 2 insulin-dependent -: Hypertension -: Diastolic CHF -: Hyperlipidemia -: Hypothyroidism -: GERD -: Obesity -: LAP-BAND -: Cholecystectomy -: Hysterectomy -: Right wrist surgery -: Left ankle surgery Psychosocial/ Personal History: Patient lives at home. She is a . - Family History Family History: Reviewed- Non-Contributory - Social History Smoking Status: Never smoker Alcohol use: No CD- Drugs: No Caffeine use: Yes Place of Residence: Home Review of Systems General: As per HPI Eyes: Unremarkable ENT: Unremarkable Respiratory: Shortness of Breath, SOB with Excertion, As per HPI Cardiovascular: Edema, As per HPI Gastrointestinal: Unremarkable Genitourinary: Unremarkable Musculoskeletal: Unremarkable Integumentary: As per HPI Neurological: Unremarkable Lymphatics: Unremarkable Physical Examination - Physical Exam General: Alert, In no apparent distress, Oriented x3, Cooperative HEENT: Atraumatic, Normocephalic, PERRLA, Mucous membr. moist/pink Neck: Supple Respiratory: Crackles/rales (Mild crackles to the bases) Cardiovascular: Normal pulses, Regular rate/rhythm Gastrointestinal: Normal bowel sounds, No tenderness, No masses, No rebound, No guarding Musculoskeletal: No erythema, No tenderness, No warmth Integumentary: No tenderness/swelling, No erythema, No warmth, No cyanosis Neurological: Normal speech, Normal strength at 5/5 x4 extr, Normal tone, Normal affect - Studies Laboratory Data (last 24 hrs) 03/20/21 13:08: PT 11.9, INR 1.03 03/20/21 13:08: WBC 5.80, Hgb 14.7, Hct 43.4, Plt Count 123 L 03/20/21 13:08: Sodium 134 L, Potassium 4.2, BUN 11, Creatinine 0.78, Glucose 344 H, Magnesium 1.9, Total Bilirubin 0.9, AST 32, ALT 28, Alkaline Phosphatase 102 Assessment and Plan - Plan Impression: Shortness of breath likely secondary to acute on chronic diastolic CHF with elevated troponin likely related to ischemic demand complicated with Covid 19 infection Atrial fibrillation on chronic anticoagulation therapy Diabetes mellitus type 2 insulin-dependent with hyperglycemia Hypertension Hyperlipidemia Hypothyroidism GERD Obesity Plan: Shortness of breath likely secondary to acute on chronic diastolic CHF with elevated troponin likely related to ischemic demand complicated with Covid 19 infection: Patient admitted for further evaluation and treatment. Patient with slight elevation in troponin. Will monitor and trend troponin and monitor telemetry. This is likely ischemic demand from acute on chronic diastolic CHF. Will start IV Lasix 20 mg twice daily. Due to her Covid positive test, will treat with IV Solu-Medrol and vitamin supplementation. Patient appears to be asymptomatic not requiring any oxygen. We will monitor this closely. We will check to see if the patient will qualify for home oxygen at discharge. Will consult cardiology for further recommendation. Will obtain echocardiogram. Recent cardiac stress tests as patient reports which was unremarkable. Will discuss with cardiology. Anticipate improvement over the next 24 to 40 hours with likely discharge at that time. Atrial fibrillation on chronic anticoagulation therapy: Continue with Xarelto and Multaq. Diabetes mellitus type 2 insulin-dependent with hyperglycemia: Continue with Lantus. Will check hemoglobin A1c. Sliding scale in place. Hypertension: We will continue with Lopressor. Hyperlipidemia: We will continue with Lipitor Hypothyroidism:: We will continue with Synthroid GERD: We will continue with Protonix Obesity: Lifestyle modification education provided. DVT prophylaxis: Xarelto CODE STATUS: Full code Advance care [id number] minutes: Home at discharge. Discharge Plan: Home Plan to discharge in: 48 Hours - Advance Directives Does patient have a Living Will: Yes Does patient have a Durable POA for Healthcare: Yes - Code Status/Comfort Care Code Status Assessed: Yes (Patient is full code) Time Spent Managing Pts Care (In Minutes): 55
[2021-03-20 16:23] LABS: C-Reactive Protein 86.1 mg/L (<3.00); Ferritin 243.6 ng/mL (8-388)
[2021-03-20] MEDS: METHYLPREDNISOLONE 40 MG INJ IV SCH (17:00)
[2021-03-20] MEDS: FUROSEMIDE 20 MG/ 2ML VIAL IV SCH (17:00)
[2021-03-20] MEDS ORDERED: ONDANSETRON 4 MG/2 ML VIAL IV PRN (17:23)
[2021-03-20] MEDS ORDERED: D50W 25 GM/50 ML SYRINGE IV PRN (17:23)
[2021-03-20] MEDS ORDERED: GLUCAGON 1 MG/VIAL IM PRN (17:23)
[2021-03-20] MEDS ORDERED: BENZONATATE 100 MG CAP PO PRN (17:23)
[2021-03-20] MEDS: INSULIN -REGULAR HUMAN 50 UNIT/0.5 ML ML SQ SCH ×3 (17:45→22:30)
[2021-03-20] MEDS: RIVAROXABAN 20 MG TABLET PO SCH (18:00)
[2021-03-20] MEDS ORDERED: METHYLPREDNISOLONE 40 MG INJ ONE (18:14)
[2021-03-20] MEDS ORDERED: FUROSEMIDE 20 MG/ 2ML VIAL ONE (18:14)
[2021-03-20] MEDS ORDERED: INSULIN -REGULAR HUMAN 50 UNIT/0.5 ML ML ONE ×2 (18:27→22:53)
[2021-03-20 18:45] LABS: CKMB Creatine Kinase MB 1.1 ng/mL (1.0-3.6); Troponin I 0.21 ng/mL (0.0-0.045)
[2021-03-20] MEDS: MAGNESIUM OXIDE 400 MG TAB PO SCH (21:00)
[2021-03-20] MEDS: ATORVASTATIN 40 MG TAB PO SCH (21:00)
[2021-03-20] MEDS ORDERED: DRONEDARONE 400 MG TAB PO SCH (21:00)
[2021-03-20] MEDS: ASCORBIC ACID 500 MG TABLET PO SCH (21:00)
[2021-03-20] MEDS ORDERED: METOPROLOL TAR 50 MG TAB PO SCH (21:00)
[2021-03-20] MEDS: GABAPENTIN 300 MG CAP PO SCH (21:00)
[2021-03-20] MEDS ORDERED: INSULIN GLARGINE 100 UNITS/ML SQ SCH (21:00)
[2021-03-20] MEDS: THIAMINE HCL 100 MG TABLET PO SCH (21:00)
[2021-03-20] MEDS ORDERED: THIAMINE HCL 100 MG TABLET ONE (21:25)
[2021-03-20] MEDS ORDERED: INSULIN GLARGINE 100 UNITS/ML SQ ONE (21:25)
[2021-03-20] MEDS ORDERED: METOPROLOL TAR 50 MG TAB ONE (21:25)
[2021-03-20] MEDS ORDERED: ASCORBIC ACID 500 MG TABLET ONE (21:26)
[2021-03-20] MEDS ORDERED: MAGNESIUM OXIDE 400 MG TAB ONE (21:26)
[2021-03-20] MEDS ORDERED: ATORVASTATIN 20 MG TAB ONE (21:26)
[2021-03-20] MEDS ORDERED: GABAPENTIN 300 MG CAP ONE (21:26)
[2021-03-21] MEDS ORDERED: METOPROLOL TARTRATE 5 MG/5 ML INJ IV STA ×3 (00:15→00:25)
[2021-03-21] MEDS ORDERED: METOPROLOL TARTRATE 5 MG/5 ML INJ IV ONE ×3 (00:21→00:28)
[2021-03-21] MEDS ORDERED: D50W 25 GM/50 ML SYRINGE IV PRN ×3 (00:45→03:34)
[2021-03-21] MEDS ORDERED: GLUCAGON 1 MG/VIAL IM PRN ×3 (00:45→03:34)
[2021-03-21] MEDS ORDERED: INSULIN -REGULAR HUMAN 50 UNIT/0.5 ML ML IV ONE ×3 (00:45→21:30)
[2021-03-21] MEDS ORDERED: DIGOXIN 0.25 MG/ML AMP IV ONE (00:45)
[2021-03-21] MEDS ORDERED: INSULIN -REGULAR HUMAN 50 UNIT/0.5 ML ML ONE (00:58)
[2021-03-21] MEDS: METHYLPREDNISOLONE 40 MG INJ IV SCH (01:00)
[2021-03-21] MEDS ORDERED: DIGOXIN 0.25 MG/ML AMP ONE (01:16)
[2021-03-21] MEDS ORDERED: AMIODARONE HCL 150 MG in D5W 100 ML IV STA (01:36)
[2021-03-21] MEDS ORDERED: AMIODARONE HCL 900 MG in Dextrose 5%-Water 482 ML IV SCH (02:00)
[2021-03-21] MEDS ORDERED: AMIODARONE HCL 150 MG/3 ML INJ IV ONE ×3 (02:19→02:26)
[2021-03-21] MEDS ORDERED: D5W 100 ML IV ONE (02:20)
[2021-03-21] MEDS ORDERED: AMIODARONE IN DEXTROSE,ISO-OSM 360 MG/200 ML BAG IV ONE (02:35)
[2021-03-21] MEDS ORDERED: METHYLPREDNISOLONE 40 MG INJ ONE (03:18)
[2021-03-21] MEDS ORDERED: INSULIN -REGULAR HUMAN 50 UNIT/0.5 ML ML SQ ONE (03:34)
[2021-03-21] MEDS: INSULIN -REGULAR HUMAN 50 UNIT/0.5 ML ML SQ SCH ×7 (03:40→21:00)
[2021-03-21 04:32] LABS: Absolute Lymphocytes (CBC) 0.8 K/uL (0.7-4.9); Basophils % 0.1 % (0-1.3); Hematocrit 45.2 % (36.0-45.0); Lymphocytes % 13.2 % (15.3-44.8); MPV 10.1 fL (7.6-11.3); RBC Red Blood Cell Count 4.77 M/uL (3.86-4.86)
[2021-03-21 04:56] LABS: CKMB Creatine Kinase MB 3.5 ng/mL (1.0-3.6); Troponin I 0.24 ng/mL (0.0-0.045)
--- NOTE | 2021-03-21 06:13 | P.PN ---
Subjective Date of Service: 03/21/21 Primary Care Provider: Dr. Hernandez Chief Complaint: Shortness of breath Subjective: Improving, Other (Patient reports improvement. Was placed on Amiodarone overnight but stopped this am due to Bradycardia. She was on antibiotics for toothache recently. Had some diarrhea. BS elevated.) Physical Examination - Vital Signs Temperature: 97.8 F Blood Pressure: 122/71 Pulse: 53 Respirations: 22 Pulse Ox (%): 93 - Studies Laboratory Data (last 24 hrs) 03/20/21 13:08: PT 11.9, INR 1.03 03/20/21 13:08: WBC 5.80, Hgb 14.7, Hct 43.4, Plt Count 123 L 03/20/21 13:08: Sodium 134 L, Potassium 4.2, BUN 11, Creatinine 0.78, Glucose 344 H, Magnesium 1.9, Total Bilirubin 0.9, AST 32, ALT 28, Alkaline Phosphatase 102 Assessment & Plan Discharge Plan: Home Plan to discharge in: 48 Hours Physician Review Additional Text: CXR: COMPARISON: Chest Single View dated 01/11/2019; Chest Pa And Lat (2 Views) dated 07/28/2018; CHEST SINGLE VIEW dated 11/30/2013; CHEST SINGLE VIEW dated 06/26/2012 FINDINGS: Cardiomegaly. Increased prominence of the pulmonary vasculature. No fractures seen. No focal consolidative airspace disease. IMPRESSION: Vascular congestion without overt edema. Follow-up chest x-ray: FINDINGS: No peripheral mass or consolidation. Heart, vasculature and lung markings are all prominent. Pattern is not clearly different. Chest findings are more pronounced than seen on the 2019 study. CHF/ volume overload remains the primary consideration. Trachea is midline. No measurable pleural effusion and no pneumothorax. No acute bony abnormality seen. No acute aortic findings suspected. IMPRESSION: Mild CHF/volume overload pattern similar to comparison. Physical Exam: General: Alert, In no apparent distress, Oriented x3, Cooperative HEENT: Atraumatic, Normocephalic, PERRLA, Mucous membr. moist/pink Neck: Supple Respiratory: Overall improved. Overall clear. Currently room air. 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 Was on Amiodarone last night due to Afib with RVR. This was stopped this am due to sinus bradycardia. Will change to her Multaq. She is on Xarelto. Chest x-ray shows improvement. Case discussed with cardiology. Await echocardiogram. Cardiology recommends to continue treatment of CHF. Continue with Multaq and Xarelto. Will change Solu-Medrol to prednisone. Diabetes needs to be better controlled. Will adjust Lantus. Anticipate improvement likely home tomorrow if significantly improved. No cardiac intervention at this time. Atrial fibrillation on chronic anticoagulation therapy with RVR: Was placed on Amiodarone last night but this was discontinued this am due to sinus bradycardia . Continue with Multaq and Xarelto as recommended by cardiology. 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 Increased Lantus and continue to adjust. Will check hemoglobin A1c. Sliding scale in place. Hypertension: Will continue with Lopressor. Hold Lisinopril. Hyperlipidemia: Will continue with Lipitor Hypothyroidism:: Will continue with Synthroid GERD: Will continue with Protonix Obesity: Lifestyle modification education provided. Diarrhea: Recently on Antibiotics for toothache. Will check for c Diff colitis. Add Lactobacillus. DVT prophylaxis: Xarelto CODE STATUS: Full code Advance care [id number] minutes: Home at discharge. Time Spent Managing Pts Care (In Minutes): 55
[2021-03-21 06:44] LABS: Magnesium 2.5 mg/dL (1.8-2.4); Potassium 4.2 mmol/L (3.5-5.1); Thyroid Stimulating Hormone 1.68 uIU/mL (0.360-3.740)
--- NOTE | 2021-03-21 07:50 | RAD REPORT ---
EXAM DESCRIPTION: RAD - Chest Single View - 03/21/2021 6:10 am CLINICAL HISTORY: Dyspnea, Follow up CHF/COVID COMPARISON: Portable March 20December 2018 TECHNIQUE: AP portable chest image was obtained 03/21/2021 6:10 am . FINDINGS: No peripheral mass or consolidation. Heart, vasculature and lung markings are all prominen t. Pattern is not clearly different. Chest findings are more pronounced than seen on the 2019 study. CHF/ volume overload remains the primary consideration. Trachea is midline. No measurable pleural eff usion and no pneumothorax. No acute bony abnormality seen. No acute aortic findings suspected. IMPRESSION: Mild CHF/volume overload pattern similar to comparison.
--- NOTE | 2021-03-21 08:05 | EKG ---
Test Date: 2021-03-20 Test Time: 13:32:56 Bankruptcy Attorney: ALFREDA MEASUREMENT RESULTS: Intervals: Rate: 109 NH: 136 QRSD: 72 QT: 356 QTc: 479 [place]: P: 47 NH: 136 QRS: 4 T: 24 INTERPRETIVE STATEMENTS: Sinus tachycardia Otherwise normal ECG Compared to ECG 01/11/2019 18:41:02 Sinus rhythm no longer present Ventricular premature complex(es) no longer present Electronically Signed On 03-21-21 08:03:41 CDT by Earl Burnette
[2021-03-21] MEDS: DULOXETINE 30 MG CAP PO SCH (08:37)
[2021-03-21] MEDS: MULTIVITAMIN TAB PO SCH (08:37)
[2021-03-21] MEDS: MAGNESIUM OXIDE 400 MG TAB PO SCH ×2 (08:37→20:57)
[2021-03-21] MEDS: VITAMIN D 1000 UNIT TAB PO SCH (08:37)
[2021-03-21] MEDS: THIAMINE HCL 100 MG TABLET PO SCH ×2 (08:37→20:56)
[2021-03-21] MEDS: ASCORBIC ACID 500 MG TABLET PO SCH ×3 (08:37→20:56)
[2021-03-21] MEDS: LACTOBACILLUS/ACIDOPHILUS TAB PO SCH ×3 (08:37→20:57)
[2021-03-21] MEDS: GABAPENTIN 300 MG CAP PO SCH ×3 (08:37→20:56)
[2021-03-21] MEDS: ZINC SULFATE 220 MG CAP PO SCH (08:37)
[2021-03-21] MEDS: FUROSEMIDE 20 MG/ 2ML VIAL IV SCH ×2 (08:38→16:44)
[2021-03-21] MEDS: LEVOTHYROXINE SOD 0.075 MG TAB PO SCH (08:39)
[2021-03-21] MEDS: METOPROLOL TAR 50 MG TAB PO SCH ×2 (09:00→20:56)
[2021-03-21] MEDS ORDERED: INSULIN GLARGINE 100 UNITS/ML SQ SCH ×2 (09:00)
[2021-03-21] MEDS ORDERED: predniSONE 10 MG TAB PO SCH (09:00)
[2021-03-21] MEDS: lisinopriL 5 MG TAB PO SCH (09:00)
--- NOTE | 2021-03-21 10:11 | CON ---
Date of Consultation: 03/21/[address] Varner service on 03/20/2021. History Of Present Illness: Ms. Frias is a 60-year-old woman. She is known to me from previous off ice visit and admission in the past. She has a history of paroxysmal atrial fibrillation, diabetes, hypertension, high cholesterol, obesity, and hypothyroidism. The patient came in with shortness of b reath and was diagnosed with COVID pneumonia. While she was in the hospital, she had normal blood pr essure, but she was noted to be in atrial fibrillation with rapid ventricular response and I was cons ulted. She had a troponin of 0.12. She is being treated with Lasix and being treated with COVID. T here is an echocardiogram pending on her for today. Throughout the night, we had to switch her from Multaq to amiodarone. She converted to sinus rhythm. Her amiodarone was stopped because she became bradycardic. She had received some digoxin. She does take Xarelto at home. She denied any chest pa in. Past Medical History: As stated above. Allergies: TO LEVODOPA, CARBIDOPA AND MORPHINE. Review of Systems: Negative. Social History: Negative. Family History: Negative. Medications: At home include Lipitor, Multaq, Trulicity, Neurontin, insulin, Synthroid, magnesium Lo pressor, potassium, Xarelto, zolpidem, and lisinopril. Physical Examination: Vital Signs: Stable. She was afebrile. By the time I saw her, she was in a sinus leeanne. HEENT: Negative. Neck: Supple without any bruit, lymphadenopathy, JVD, or thyromegaly. Chest: Clear to auscultation and percussion. Cardiac: Revealed a regular rhythm and rate without any murmurs, gallops, or rubs. Abdomen: Benign. Extremities: Revealed no clubbing, cyanosis, or edema. Diagnostic Data: She is COVID positive. Has COVID pneumonia. Troponin of 0.12 and 0.21. BNP is 37 2. Her glucose level was 448. Impression And Plan: 1.Shortness of breath secondary to COVID pneumonia. 2.Atrial fibrillation, paroxysmal. I think we need to put her back on the Multaq. Continue Xarelto . Stop the IV amiodarone, use IV Lopressor or IV digoxin as needed. 3.Elevated troponin and slightly elevated BNP secondary to a combination of atrial fibrillation and COVID pneumonia. I would repeat an echocardiogram, but no plan for coronary intervention. 4.Her other problems include poorly controlled diabetes, poorly controlled hypertension. Her dyslip idemia is well controlled. Her hypothyroidism is well controlled. I will continue present regimen. Get another echocardiogram. I will continue to follow her. JAMEEL/KARI Voice ID: [id number] Report ID: [id number]
[2021-03-21] MEDS: DRONEDARONE 400 MG TAB PO SCH ×2 (11:22→20:58)
[2021-03-21] MEDS: INSULIN GLARGINE 100 UNITS/ML SQ SCH ×2 (14:40→21:24)
[2021-03-21] MEDS: RIVAROXABAN 20 MG TABLET PO SCH (16:44)
[2021-03-21] MEDS: ATORVASTATIN 40 MG TAB PO SCH (20:57)
[2021-03-22] MEDS ORDERED: INSULIN -REGULAR HUMAN 50 UNIT/0.5 ML ML SQ ONE (00:30)
[2021-03-22] MEDS: LEVOTHYROXINE SOD 0.075 MG TAB PO SCH (05:31)
--- NOTE | 2021-03-22 05:46 | P.DS ---
Admission Date: 03/21/21 Discharge Date: 03/22/21 Primary Care Provider: Dr. Hernandez Disposition: ROUTINE DISCHARGE Discharge Condition: GOOD Reason for Admission: Shortness of breath Consultations: Cardiology-Dr. Burnette Procedures: CXR: COMPARISON: Chest Single View dated 01/11/2019; Chest Pa And Lat (2 Views) dated 07/28/2018; CHEST SINGLE VIEW dated 11/30/2013; CHEST SINGLE VIEW dated 06/26/2012 FINDINGS: Cardiomegaly. Increased prominence of the pulmonary vasculature. No fractures seen. No focal consolidative airspace disease. IMPRESSION: Vascular congestion without overt edema. Follow-up chest x-ray: FINDINGS: No peripheral mass or consolidation. Heart, vasculature and lung markings are all prominent. Pattern is not clearly different. Chest findings are more pronounced than seen on the 2019 study. CHF/ volume overload remains the primary consideration. Trachea is midline. No measurable pleural effusion and no pneumothorax. No acute bony abnormality seen. No acute aortic findings suspected. IMPRESSION: Mild CHF/volume overload pattern similar to comparison. 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 Patient presented to the emergency room with increasing shortness of breath. She had gone to urgent care earlier and they noted that she was slightly hypoxic. Patient denies any fever, chills, nausea or vomiting. Several family embers have tested positive for Covid. She was worried that she had a Covid infection. She denies any significant chest pain. In the ER patient was evaluated. Vital signs stable. Patient on room air at this time. Chest x-ray shows some vascular congestion. White count 5.8, hemoglobin 14.7. Platelet count 123. Sodium 134, potassium 4.2. BUN of 11, creatinine 0.7 with a GFR 75. Glucose 344. Troponin 0 0.12 BNP 372. AST 32, ALT 28. CRP and ferritin pending. Patient was positive for Covid. EKG shows no significant ST changes. Patient admitted for further evaluation and treatment. Patient reports that she had been taking Lasix in the past but this was discontinued by cardiology. She also reports patient had cardiac stress test several months ago which was unremarkable. Hospital Course: Plan: Shortness of breath likely secondary to acute on chronic diastolic CHF with elevated troponin likely related to ischemic demand complicated with Covid 19 infection: Patient overall improved. Was on Amiodarone last night due to Afib with RVR. This was stopped this am due to sinus bradycardia. Will change to her Multaq. She is on Xarelto. Chest x-ray shows improvement. Case discussed with cardiology. Await echocardiogram. Cardiology recommends to continue treatment of CHF. Continue with Multaq and Xarelto. Will change Solu-Medrol to prednisone. Diabetes needs to be better controlled. Will adjust Lantus. Anticipate improvement likely home tomorrow if significantly improved. No cardiac intervention at this time. Atrial fibrillation on chronic anticoagulation therapy with RVR: Was placed on Amiodarone last night but this was discontinued this am due to sinus bradycardia. Continue with Multaq and Xarelto as recommended by cardiology. 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 Increased Lantus and continue to adjust. Will check hemoglobin A1c. Sliding scale in place. Hypertension: Will continue with Lopressor. Hold Lisinopril. Hyperlipidemia: Will continue with Lipitor Hypothyroidism:: Will continue with Synthroid GERD: Will continue with Protonix Obesity: Lifestyle modification education provided. Diarrhea: Recently on Antibiotics for toothache. Will check for c Diff colitis. Add Lactobacillus. DVT prophylaxis: Xarelto CODE STATUS: Full code Advance care [id number] minutes: Home at discharge. Time Spent Managing Pts Care (In Minutes): 55 Vital Signs/Physical Exam: Temp Pulse Resp BP Pulse Ox 98.3 F 55 18 110/60 96 03/22/21 04:00 03/22/21 04:00 03/22/21 04:00 03/22/21 04:00 03/22/21 04:00 Laboratory Data at Discharge: WBC 6.40 K/uL (4.3-10.9) 03/21/21 03:55 Hgb 15.2 g/dL (12.0-15.0) H 03/21/21 03:55 Hct 45.2 % (36.0-45.0) H 03/21/21 03:55 Plt Count 139 K/uL (152-406) L 03/21/21 03:55 PT 11.9 SECONDS (9.5-12.5) 03/20/21 13:08 INR 1.03 03/20/21 13:08 Sodium 133 mmol/L (136-145) L 03/21/21 05:12 Potassium 4.2 mmol/L (3.5-5.1) 03/21/21 05:12 BUN 23 mg/dL (7-18) H 03/21/21 05:12 Creatinine 1.15 mg/dL (0.55-1.3) 03/21/21 05:12 Glucose 601 mg/dL (74-106) H* 03/21/21 20:03 Magnesium 2.5 mg/dL (1.8-2.4) H D 03/21/21 05:12 Total Bilirubin 0.9 mg/dL (0.2-1.0) 03/20/21 13:08 AST 32 U/L (15-37) 03/20/21 13:08 ALT 28 U/L (12-78) 03/20/21 13:08 Alkaline Phosphatase 102 U/L (45-117) 03/20/21 13:08 Troponin I 0.24 ng/mL (0.0-0.045) H 03/21/21 03:55 Triglycerides 127 mg/dL (<150) 03/21/21 05:12 Cholesterol 143 mg/dL (<200) 03/21/21 05:12 HDL Cholesterol 58 mg/dL (40-60) 03/21/21 05:12 Cholesterol/HDL Ratio 2.47 03/21/21 05:12 Home Medications: Atorvastatin Calcium [Lipitor*] 40 mg PO BEDTIME 08/26/18 Cholecalciferol (Vitamin D3) [Vitamin D 1000 Iu Tab*] 1,000 unit PO BID 08/26/18 Dronedarone [Multaq*] 400 mg PO BID 08/26/18 Dulaglutide [Trulicity] 3 mg SQ DIRECTED 08/26/18 Insulin Degludec [Tresiba Flextouch U-100] 0 unit SQ DAILY 08/26/18 Levothyroxine Sodium [Synthroid] 150 mcg PO DAILY 08/26/18 Magnesium Oxide [Magnesium] 400 mg PO BID 08/26/18 Metoprolol Tartrate [Lopressor*] 50 mg PO BID 08/26/18 Potassium Chloride [Klor-Con M20] 20 meq PO BID 08/26/18 Rivaroxaban [Xarelto*] 20 mg PO DAILY AFTER SUPPER 08/26/18 lisinopriL [Prinivil*] 5 mg PO DAILY 08/26/18 Gabapentin [Neurontin] 600 mg PO TID 03/20/21 Multivitamin 1 each PO DAILY 03/20/21 [place]-3/Dha/Epa/Fish Oil [Fish Oil 1,000 mg Softgel] 1 each PO DAILY 03/20/21 Zolpidem Tartrate 10 mg PO BEDTIME PRN 03/20/21 Followup: Mary CAZARES,Elise Hastings DO [Primary Care Provider] -
[2021-03-22 05:48] LABS: Basophils % 0.1 % (0-1.3); Hematocrit 43.2 % (36.0-45.0); Lymphocytes % 10.4 % (15.3-44.8); MPV 10.3 fL (7.6-11.3); RBC Red Blood Cell Count 4.68 M/uL (3.86-4.86)
[2021-03-22 06:05] LABS: Magnesium 2.4 mg/dL (1.8-2.4); Potassium 4.3 mmol/L (3.5-5.1)
--- NOTE | 2021-03-22 07:57 | ECHO ---
HEIGHT: 5 ft 4 in WEIGHT: 265 lb 0 oz DATE OF STUDY: 03/21/[address]: Claudy Varner DO 2-DIMENSIONAL: YES M.MODE: YES DOPPLER: YES COLOR FLOW: YES TDS: YES PORTABLE: NO DEFINITY: NO BUBBLE STUDY: NO DIAGNOSIS: CHRONIC CONGESTIVE HEART FAILURE CARDIAC HISTORY: CATHERIZATION: NO SURGERY: NO PROSTHETIC VALVE: NO PACEMAKER: NO MEASUREMENTS (cm) DIASTOLIC (NORMALS) SYSTOLIC (NORMALS) IVSd 1.2 (0.6-1.2) LA Diam (1.9-4.0) LVEF 76% LVIDd 4.0 (3.5-5.7) LVIDs 2.2 (2.0-3.5) %FS 44% LVPWd 1.2 (0.6-1.2) Ao Diam 3.1 (2.0-3.7) 2 DIMENSIONAL ASSESSMENT: RIGHT ATRIUM: NORMAL LEFT ATRIUM: NORMAL RIGHT VENTRICLE: NORMAL LEFT VENTRICLE: NORMAL TRICUSPID VALVE: NORMAL MITRAL VALVE: NORMAL PULMONIC VALVE: NORMAL AORTIC VALVE: NORMAL PERICARDIAL EFFUSION: NONE AORTIC ROOT: NORMAL LEFT VENTRICULAR WALL MOTION: NORMAL. DOPPLER/COLOR FLOW: NORMAL. COMMENTS: NORMAL 2D ECHO WITH DOPPLER. NO CONGESTIVE HEART FAILURE. NO WALL MOTION ABNORMALITY TECHNOLOGIST: ANGELITA BATES
[2021-03-22] MEDS: ZINC SULFATE 220 MG CAP PO SCH (09:00)
[2021-03-22] MEDS: FUROSEMIDE 20 MG/ 2ML VIAL IV SCH ×2 (09:00→09:02)
[2021-03-22] MEDS: THIAMINE HCL 100 MG TABLET PO SCH ×2 (09:00→21:32)
[2021-03-22] MEDS: lisinopriL 5 MG TAB PO SCH ×2 (09:00→09:17)
[2021-03-22] MEDS: MULTIVITAMIN TAB PO SCH (09:00)
[2021-03-22] MEDS: predniSONE 10 MG TAB PO SCH (09:00)
[2021-03-22] MEDS: METOPROLOL TAR 50 MG TAB PO SCH ×2 (09:00→21:31)
[2021-03-22] MEDS: VITAMIN D 1000 UNIT TAB PO SCH (09:00)
[2021-03-22] MEDS: INSULIN -REGULAR HUMAN 50 UNIT/0.5 ML ML SQ SCH ×4 (09:01→21:29)
[2021-03-22] MEDS: INSULIN GLARGINE 100 UNITS/ML SQ SCH ×2 (09:01→21:30)
[2021-03-22] MEDS: GABAPENTIN 300 MG CAP PO SCH ×3 (09:01→21:31)
[2021-03-22] MEDS: MAGNESIUM OXIDE 400 MG TAB PO SCH ×2 (09:01→21:33)
[2021-03-22] MEDS: LACTOBACILLUS/ACIDOPHILUS TAB PO SCH ×3 (09:01→21:00)
[2021-03-22] MEDS: DULOXETINE 30 MG CAP PO SCH (09:01)
--- NOTE | 2021-03-22 09:19 | P.PN ---
Subjective Date of Service: 03/22/21 Primary Care Provider: Dr. Hernandez Chief Complaint: Shortness of breath Subjective: Improving, Doing well (Currently on 3 L/min. No SOB. Feeling better) Physical Examination - Vital Signs Temperature: 98.3 F Blood Pressure: 130/66 Pulse: 61 Respirations: 20 Pulse Ox (%): 94 - Studies Laboratory Data (last 24 hrs) 03/21/21 12:00: Glucose 597 H* Assessment & Plan Discharge Plan: Home Plan to discharge in: 48 Hours Physician Review Additional Text: CXR: COMPARISON: Chest Single View dated 01/11/2019; Chest Pa And Lat (2 Views) dated 07/28/2018; CHEST SINGLE VIEW dated 11/30/2013; CHEST SINGLE VIEW dated 06/26/2012 FINDINGS: Cardiomegaly. Increased prominence of the pulmonary vasculature. No fractures seen. No focal consolidative airspace disease. IMPRESSION: Vascular congestion without overt edema. Follow-up chest x-ray: FINDINGS: No peripheral mass or consolidation. Heart, vasculature and lung markings are all prominent. Pattern is not clearly different. Chest findings are more pronounced than seen on the 2019 study. CHF/ volume overload remains the primary consideration. Trachea is midline. No measurable pleural effusion and no pneumothorax. No acute bony abnormality seen. No acute aortic findings suspected. IMPRESSION: Mild CHF/volume overload pattern similar to comparison. Physical Exam: General: Alert, In no apparent distress, Oriented x3, Cooperative HEENT: Atraumatic, Normocephalic, PERRLA, Mucous membr. moist/pink Neck: Supple Respiratory: Overall improved. Overall clear. Currently room air. 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 On 3 l/m. DC Lasix due to renal fuxn. Likely overdiuresis. Encourage oral intake. Continue with Multaq and Xarelto. Now on Prednisone and supplements for COVID. Will check Ferritin and CRP. Recheck CXR. Diabetes needs to be better controlled. Lantus adjusted. Encourage incentive spirometer. Anticipate improvement over the next 24 to 48 hours. Needs better renal function. Acute renal failure likely overdiuresis: Hold Lasix. Will given fluid bolus. Encourage oral intake. Recheck CXR today. Arrange for home oxygen at DC. PT to assess and make recommendations. Await recs by Nephrology. Atrial fibrillation on chronic anticoagulation therapy with RVR: Continue with Multaq and Xarelto as recommended by cardiology. Diabetes mellitus type 2 insulin-dependent with hyperglycemia: Better control with adjustment to Lantus. Continue to adjust. Will check hemoglobin A1c. Sliding scale in place. Hypertension: Will continue with Lopressor. Hold Lisinopril. Hyperlipidemia: Will continue with Lipitor Hypothyroidism:: Will continue with Synthroid GERD: Will continue with Protonix Obesity: Lifestyle modification education provided. Diarrhea: Overall better. Recently on Antibiotics for toothache. Will check for c Diff colitis. Add Lactobacillus. DVT prophylaxis: Xarelto CODE STATUS: Full code Advance care [id number] minutes: Home at discharge. Home with Oxygen. May need walker or device. Await recs from PT. Time Spent Managing Pts Care (In Minutes): 55
[2021-03-22] MEDS: ASCORBIC ACID 500 MG TABLET PO SCH ×3 (09:26→21:31)
[2021-03-22 09:45] LABS: C-Reactive Protein 34.7 mg/L (<3.00); Ferritin 475.5 ng/mL (8-388)
--- NOTE | 2021-03-22 11:44 | RAD REPORT ---
EXAM DESCRIPTION: RAD - Chest Single View - 03/22/2021 11:33 am CLINICAL HISTORY: follow up chf/covid COMPARISON: Chest Single View dated 03/21/2021; Chest Single View dated 03/20/2021; Chest Single View da xavier 01/11/2019; Chest Pa And Lat (2 Views) dated 07/28/2018 FINDINGS: Hazy bilateral airspace disease with prominence of the pulmonary vasculature. Cardiomegaly .No acute osseous abnormality. Difficult to exclude small effusions. IMPRESSION: Similar pulmonary edema compared with 03/21/2021.
[2021-03-22] MEDS: DRONEDARONE 400 MG TAB PO SCH ×2 (12:22→21:32)
[2021-03-22] MEDS ORDERED: NA CHLORIDE 0.9% 250 ML IV ONE (13:30)
[2021-03-22] MEDS: RIVAROXABAN 20 MG TABLET PO SCH (17:24)
[2021-03-22] MEDS: ATORVASTATIN 40 MG TAB PO SCH (21:30)
[2021-03-22] MEDS ORDERED: LACTOBACILLUS/ACIDOPHILUS TAB ONE (21:40)
[2021-03-23] MEDS: ACETAMINOPHEN 500 MG TAB PO PRN ×2 (04:29→16:40)
[2021-03-23] MEDS: LEVOTHYROXINE SOD 0.075 MG TAB PO SCH (05:32)
--- NOTE | 2021-03-23 05:43 | P.PN ---
Subjective Date of Service: 03/23/21 Primary Care Provider: Dr. Hernandez Chief Complaint: Shortness of breath Subjective: Improving, Doing well Physical Examination - Vital Signs Temperature: 98.8 F Blood Pressure: 131/59 Pulse: 65 Respirations: 27 Pulse Ox (%): 93 Assessment & Plan Discharge Plan: Home Plan to discharge in: 24 Hours Physician Review Additional Text: CXR: COMPARISON: Chest Single View dated 01/11/2019; Chest Pa And Lat (2 Views) dated 07/28/2018; CHEST SINGLE VIEW dated 11/30/2013; CHEST SINGLE VIEW dated 06/26/2012 FINDINGS: Cardiomegaly. Increased prominence of the pulmonary vasculature. No fractures seen. No focal consolidative airspace disease. IMPRESSION: Vascular congestion without overt edema. Follow-up chest x-ray: COMPARISON: March 22, March 20 TECHNIQUE: AP portable chest image was obtained 03/23/2021 7:46 am . FINDINGS: Scattered airspace opacification in both lung mendez, more prominent in each base, has not shown substantial change on serial imaging. Cardiac silhouette remains prominent but stable. Fullness of the mediastinum also stable No measurable pleural effusion and no pneumothorax. No acute bony abnormality seen. No acute aortic findings suspected. IMPRESSION: Patchy bilateral airspace opacification not significantly different from comparison imaging. Given the provided history this is most likely COVID-19 pneumonia. A concurrent failure or volume overload component is not excluded. Physical Exam: General: Alert, In no apparent distress, Oriented x3, Cooperative HEENT: Atraumatic, Normocephalic, PERRLA, Mucous membr. moist/pink Neck: Supple Respiratory: Overall clear. Currently on 2 to 3 L per nasal cannula. 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 Currently on 2 to 3 L per nasal cannula. Lasix discontinued yesterday due to poor renal function. Renal function improved. Patient now on prednisone and supplements for her Covid infection. Patient remained stable on Multaq and Xarelto for her atrial f ibrillation. Continue 1500 cc/day fluid restriction. Will consider low-dose Lasix at discharge as needed. Encourage ambulation. Anticipate likely discharge tomorrow with home oxygen and medications. If patient does extremely well by the end of the day will consider discharge but would like to see her ambulate without difficulty. Plan of care discussed with patient and nurse. Acute renal failure likely overdiuresis: Overall improved. Will continue to monitor closely. Patient off diuretic therapy. Renal function improved. Recheck BMP tomorrow. Atrial fibrillation on chronic anticoagulation therapy with RVR: Continue with Multaq and Xarelto as recommended by cardiology. 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 Sliding scale in place. Hypertension: Will continue with Lopressor. Hold Lisinopril. Hyperlipidemia: Will continue with Lipitor Hypothyroidism:: Will continue with Synthroid GERD: Will continue with Protonix Obesity: Lifestyle modification education provided. Diarrhea: Overall better. Recently on Antibiotics for toothache. Add Lactobacillus. DVT prophylaxis: Xarelto CODE STATUS: Full code [facility] [id number] minutes: Home at discharge. Home with Oxygen. May need walker or device. Await recs from PT. Anticipate home discharge tomorrow Time Spent Managing Pts Care (In Minutes): 55
[2021-03-23 06:01] LABS: C-Reactive Protein 38.1 mg/L (<3.00); Ferritin 479.1 ng/mL (8-388); Magnesium 2.2 mg/dL (1.8-2.4); Potassium 4.1 mmol/L (3.5-5.1)
[2021-03-23] MEDS: INSULIN -REGULAR HUMAN 50 UNIT/0.5 ML ML SQ SCH ×4 (07:30→21:46)
[2021-03-23] MEDS: INSULIN GLARGINE 100 UNITS/ML SQ SCH ×2 (08:08→21:46)
[2021-03-23] MEDS: MULTIVITAMIN TAB PO SCH (08:08)
[2021-03-23] MEDS: predniSONE 10 MG TAB PO SCH (08:08)
[2021-03-23] MEDS: DULOXETINE 30 MG CAP PO SCH (08:08)
[2021-03-23] MEDS: METOPROLOL TAR 50 MG TAB PO SCH ×2 (08:08→21:00)
[2021-03-23] MEDS: THIAMINE HCL 100 MG TABLET PO SCH ×2 (08:09→21:45)
[2021-03-23] MEDS: GABAPENTIN 300 MG CAP PO SCH ×3 (08:09→21:45)
[2021-03-23] MEDS: ZINC SULFATE 220 MG CAP PO SCH (08:09)
[2021-03-23] MEDS: MAGNESIUM OXIDE 400 MG TAB PO SCH ×2 (08:09→21:46)
[2021-03-23] MEDS: ASCORBIC ACID 500 MG TABLET PO SCH ×3 (08:09→21:46)
[2021-03-23] MEDS: DRONEDARONE 400 MG TAB PO SCH ×2 (08:09→21:45)
[2021-03-23] MEDS: VITAMIN D 1000 UNIT TAB PO SCH (08:09)
[2021-03-23] MEDS: LACTOBACILLUS/ACIDOPHILUS TAB PO SCH ×3 (08:14→21:47)
--- NOTE | 2021-03-23 08:40 | RAD REPORT ---
EXAM DESCRIPTION: RAD - Chest Single View - 03/23/2021 7:46 am CLINICAL HISTORY: follow up CHF, COVID, pneumonia COMPARISON: March 22March 20 TECHNIQUE: AP portable chest image was obtained 03/23/2021 7:46 am . FINDINGS: Scattered airspace opacification in both lung mendez, more prominent in each base, has not shown substantial change on serial imaging. Cardiac silhouette remains prominent but stable. Fullnes s of the mediastinum also stable No measurable pleural effusion and no pneumothorax. No acute bony ab normality seen. No acute aortic findings suspected. IMPRESSION: Patchy bilateral airspace opacification not significantly different from comparison imag ing. Given the provided history this is most likely COVID-19 pneumonia. A concurrent failure or volume ove rload component is not excluded.
[2021-03-23] MEDS ORDERED: HYDROCODONE/APAP 7.5/325 MG TAB PO PRN (15:51)
[2021-03-23] MEDS ORDERED: TRAMADOL HCL 50 MG TAB PO PRN (15:53)
[2021-03-23] MEDS: METHYLPREDNISOLONE 40 MG INJ IV SCH (16:51)
[2021-03-23] MEDS: RIVAROXABAN 20 MG TABLET PO SCH (16:51)
[2021-03-23] MEDS: FUROSEMIDE 20 MG/ 2ML VIAL IV SCH (16:51)
[2021-03-23] MEDS ORDERED: INSULIN GLARGINE 100 UNITS/ML SQ SCH (21:00)
[2021-03-23] MEDS ORDERED: predniSONE 20 MG TAB PO SCH (21:00)
[2021-03-23] MEDS: ATORVASTATIN 40 MG TAB PO SCH (21:45)
[2021-03-24] MEDS: METHYLPREDNISOLONE 40 MG INJ IV SCH ×3 (01:26→17:11)
[2021-03-24 05:03] LABS: Albumin 2.6 g/dL (3.4-5.0); Bilirubin Total 0.7 mg/dL (0.2-1.0); C-Reactive Protein 49.5 mg/L (<3.00); Ferritin 599.3 ng/mL (8-388); Magnesium 2.4 mg/dL (1.8-2.4); Potassium 4.8 mmol/L (3.5-5.1); Protein, Total 6.7 g/dL (6.4-8.2)
[2021-03-24] MEDS: LEVOTHYROXINE SOD 0.075 MG TAB PO SCH (06:05)
[2021-03-24] MEDS: VITAMIN D 1000 UNIT TAB PO SCH (08:17)
[2021-03-24] MEDS: INSULIN -REGULAR HUMAN 50 UNIT/0.5 ML ML SQ SCH ×4 (08:17→21:25)
[2021-03-24] MEDS: DULOXETINE 30 MG CAP PO SCH (08:17)
[2021-03-24] MEDS: FUROSEMIDE 20 MG/ 2ML VIAL IV SCH ×2 (08:18→17:11)
[2021-03-24] MEDS: METOPROLOL TAR 50 MG TAB PO SCH ×2 (08:18→21:00)
[2021-03-24] MEDS: MAGNESIUM OXIDE 400 MG TAB PO SCH ×2 (08:18→21:23)
[2021-03-24] MEDS: GABAPENTIN 300 MG CAP PO SCH ×3 (08:18→21:24)
[2021-03-24] MEDS: MULTIVITAMIN TAB PO SCH (08:18)
[2021-03-24] MEDS: THIAMINE HCL 100 MG TABLET PO SCH ×2 (08:18→21:24)
[2021-03-24] MEDS: ASCORBIC ACID 500 MG TABLET PO SCH ×3 (08:18→21:24)
[2021-03-24] MEDS: ZINC SULFATE 220 MG CAP PO SCH (08:18)
[2021-03-24] MEDS: INSULIN GLARGINE 100 UNITS/ML SQ SCH ×2 (08:19→21:25)
[2021-03-24] MEDS: LACTOBACILLUS/ACIDOPHILUS TAB PO SCH ×3 (08:20→21:23)
[2021-03-24] MEDS: DRONEDARONE 400 MG TAB PO SCH ×2 (08:20→21:00)
--- NOTE | 2021-03-24 08:37 | P.PN ---
Subjective Date of Service: 03/24/21 Primary Care Provider: Dr. Hernandez Chief Complaint: Shortness of breath Subjective: Other (Patient reports improvement. No significant distress noted. Still requiring high dose oxygen.) Physical Examination - Vital Signs Temperature: 97.2 F Blood Pressure: 115/60 Pulse: 50 Respirations: 18 Pulse Ox (%): 93 Assessment & Plan Discharge Plan: Home Plan to discharge in: Greater than 2 days Physician Review Additional Text: CXR: COMPARISON: Chest Single View dated 01/11/2019; Chest Pa And Lat (2 Views) dated 07/28/2018; CHEST SINGLE VIEW dated 11/30/2013; CHEST SINGLE VIEW dated 06/26/2012 FINDINGS: Cardiomegaly. Increased prominence of the pulmonary vasculature. No fractures seen. No focal consolidative airspace disease. IMPRESSION: Vascular congestion without overt edema. Follow-up chest x-ray: COMPARISON: March 23 FINDINGS: No significant change in mild to moderate bilateral pulmonary opacities. Heart remains enlarged IMPRESSION: No significant change in CHF Physical Exam: General: Alert, In no apparent distress, Oriented x3, Cooperative HEENT: Atraumatic, Normocephalic, PERRLA, Mucous membr. moist/pink Neck: Supple Respiratory: Clear anteriorly. Some decrease in breath sounds to the bases. Currently on high-dose nasal cannulaaround 10 L. 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 Currently on high-dose nasal cannula around 10 L. Renal function improved. Patient was restarted back on IV Solu- Medrol and IV Lasix yesterday. Improvement noted. We will continue with IV Solu-Medrol and IV Lasix. Patient still wants to wait on implementing any other Covid medication like remdesivir due to potential side effects of liver toxicity. Encourage incentive spirometer, proning. Physical therapy to continue to assess and treat. Patient remains stable on Multaq and Xarelto for her atrial fibrillation. Continue 1500 cc/day fluid restriction. Continue to monitor closely. Will have respiratory wean her off the oxygen. Recheck chest x-ray today. Will discuss with cardiology and pulmonology. Anticipate improvement over the next 2 to 3 days. Acute renal failure likely overdiuresis: Renal function improved. Patient back on IV Lasix. We will continue to monitor renal function closely Atrial fibrillation on chronic anticoagulation therapy with RVR: Continue with Multaq and Xarelto as recommended by cardiology. 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 Continue to adjust Lantus for better diabetic control. Will increase Lantus again this morning. Sliding scale in place. Hypertension: Will continue with Lopressor. Lisinopril has been discontinued. Hyperlipidemia: Will continue with Lipitor Hypothyroidism:: Will continue with Synthroid GERD: Will continue with Protonix Obesity: Lifestyle modification education provided. Diarrhea: Overall better. Recently on Antibiotics for toothache. Currently on Lactobacillus. DVT prophylaxis: Xarelto CODE STATUS: Full code [facility] [email or web address] minutes: Home at discharge. Home with Oxygen. May need walker or device. Await recs from PT. anticipate home in the next 2 to 3 days. Time Spent Managing Pts Care (In Minutes): 55
[2021-03-24] MEDS ORDERED: INSULIN GLARGINE 100 UNITS/ML SQ SCH (09:00)
--- NOTE | 2021-03-24 09:02 | RAD REPORT ---
EXAM DESCRIPTION: Mike Single View03/24/2021 6:14 am CLINICAL HISTORY: Shortness of breath COMPARISON: March 23 FINDINGS: No significant change in mild to moderate bilateral pulmonary opacities. Heart remains enl arged IMPRESSION: No significant change in CHF
[2021-03-24 10:09] LABS: Urine Appearance CLEAR (Clear); Urine Bilirubin NEGATIVE (Negative); Urine Blood NEGATIVE (Negative); Urine Color YELLOW (Yellow); Urine Glucose 2+ (Negative); Urine Protein NEGATIVE (Negative); Urine Specific Gravity 1.015 (1.005-1.030); Urine Urobilinogen 0.2 mg/dL (0.2-1.0)
[2021-03-24 10:35] LABS: Urine Microscopic Reflex NO UMIC
[2021-03-24] MEDS ORDERED: INSULIN GLARGINE 100 UNITS/ML SQ ONE (12:00)
--- NOTE | 2021-03-24 12:53 | PN ---
Date of Progress Note: 03/21/2021 Mrs. Loren Frias was admitted with shortness of breath secondary to COVID pneumonia, paroxysmal atr ial fibrillation, troponin elevation. An echocardiogram was done, which showed normal wall motion. There is no evidence of congestive heart failure. Ejection fraction is 76%. No effusion. Comfortab le with her shortness of breath being related to the COVID pneumonia. She was noted to have atrial f ibrillation. They stopped the Multaq and they put her on IV amiodarone. She became bradycardic with sinus leeanne. We discontinued the IV amiodarone. Continue her Multaq. Continue her Xarelto. Use I V Lopressor and IV digoxin as needed. Her other problems include diabetes, hypertension, dyslipidemi a. We will follow up as an outpatient. RICKI Voice ID: [id number] Report ID: [id number]
[2021-03-24] MEDS ORDERED: REMDESIVIR (EUA) 200 MG in NA CHLORIDE 0.9% 250 ML IV ONE (13:00)
[2021-03-24] MEDS: RIVAROXABAN 20 MG TABLET PO SCH (17:12)
[2021-03-24] MEDS: ATORVASTATIN 40 MG TAB PO SCH (21:24)
[2021-03-24] MEDS: ACETAMINOPHEN 500 MG TAB PO PRN (22:58)
[2021-03-25] MEDS: METHYLPREDNISOLONE 40 MG INJ IV SCH ×3 (01:11→16:17)
[2021-03-25] MEDS: ZOLPIDEM TARTRATE 10 MG TABLET PO PRN (01:18)
[2021-03-25 05:15] LABS: Absolute Lymphocytes (CBC) 0.7 K/uL (0.7-4.9); Basophils % 0.1 % (0-1.3); Hematocrit 39.3 % (36.0-45.0); Lymphocytes % 8.5 % (15.3-44.8); MPV 9.7 fL (7.6-11.3); RBC Red Blood Cell Count 4.33 M/uL (3.86-4.86)
[2021-03-25] MEDS: LEVOTHYROXINE SOD 0.075 MG TAB PO SCH (05:41)
--- NOTE | 2021-03-25 05:49 | P.PN ---
Subjective Date of Service: 03/25/21 Primary Care Provider: Dr. Hernandez Chief Complaint: Shortness of breath Subjective: Other (Patient stable. Patient reports mild improvement. Currently on high flow at 100%.) Physical Examination - Vital Signs Temperature: 97.2 F Blood Pressure: 113/73 Pulse: 58 Respirations: 19 Pulse Ox (%): 89 Assessment & Plan Discharge Plan: Home Plan to discharge in: Greater than 2 days Physician Review Additional Text: CXR: COMPARISON: Chest Single View dated 01/11/2019; Chest Pa And Lat (2 Views) dated 07/28/2018; CHEST SINGLE VIEW dated 11/30/2013; CHEST SINGLE VIEW dated 06/26/2012 FINDINGS: Cardiomegaly. Increased prominence of the pulmonary vasculature. No fractures seen. No focal consolidative airspace disease. IMPRESSION: Vascular congestion without overt edema. Follow-up chest x-ray: COMPARISON: Chest Single View dated 03/24/2021; Chest Single View dated 03/23/2021; Chest Single View dated 03/22/2021; Chest Single View dated 03/21/2021 FINDINGS: Portable technique limits examination quality. Extensive bilateral pulmonary opacities show no significant interval change since yesterday's study. The heart is mildly enlarged in size. Degenerative changes are present both shoulders. IMPRESSION: Stable chest since 03/24/2021 study. Physical Exam: General: Alert, In no apparent distress, Oriented x3, Cooperative HEENT: Atraumatic, Normocephalic, PERRLA, Mucous membr. moist/pink Neck: Supple Respiratory: No respiratory distress noted. Currently on high flow at 100%. Cardiovascular: Normal pulses, Regular rate/rhythm Gastrointestinal: Normal bowel sounds, No tenderness, No masses, No rebound, No guarding Musculoskeletal: No erythema, No tenderness, No warmth Integumentary: No significant edema to the lower extremity. 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 Oxygen content increased since yesterday. Currently on high flow at 100%. Renal function back to baseline with creatinine of 0.83 GFR 70. Ferritin elevated at 975 previously 599. CRP improved from 49 to 22. Remdesivir was started yesterday. Continue to monitor liver function test. Liver function tests within normal range. Continue IV Solu-Medrol and IV Lasix. Monitor chest x-ray. Repeat chest x-ray today. Encourage incentive spirometer, proning. Physical therapy to continue to assess and treat. Patient remains stable on Multaq and Xarelto for her atrial fibrillation. Continue 1500 cc/day fluid restriction. Continue to monitor closely. Will have respiratory wean her off the high flow. Recheck chest x-ray today. Continue to discuss with cardiology and pulmonology. Anticipate improvement over the next several days. Will continue current plan of care. Will discuss with daughter. Acute renal failure likely overdiuresis: Renal function back to baseline. Creatinine 0.83 with GFR of 70. Continue with IV diuresis. Atrial fibrillation on chronic anticoagulation therapy with RVR: Continue with Multaq and Xarelto as recommended by cardiology. 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 Continue to adjust Lantus for better diabetic control. Lantus was adjusted yesterday. Sliding scale in place. Hypertension: Will continue with Lopressor. Lisinopril has been discontinued. Hyperlipidemia: Will continue with Lipitor Hypothyroidism:: Will continue with Synthroid GERD: Will continue with Protonix Obesity: Lifestyle modification education provided. Diarrhea: Overall better. Recently on Antibiotics for toothache. Currently on Lactobacillus. C. difficile pending DVT prophylaxis: Xarelto CODE STATUS: Full code [facility] [email or web address] minutes: Home at discharge. Home with Oxygen. May need walker or device. Await recs from PT. Anticipate home in the next 2 to 3 days. Time Spent Managing Pts Care (In Minutes): 55
[2021-03-25 05:58] LABS: Albumin 2.5 g/dL (3.4-5.0); Bilirubin Direct 0.2 mg/dL (0-0.2); Bilirubin Total 0.6 mg/dL (0.2-1.0); C-Reactive Protein 22.6 mg/L (<3.00); Ferritin 975.6 ng/mL (8-388); Magnesium 2.5 mg/dL (1.8-2.4); Potassium 4.4 mmol/L (3.5-5.1); Protein, Total 6.5 g/dL (6.4-8.2)
[2021-03-25] MEDS: VITAMIN D 1000 UNIT TAB PO SCH (07:54)
[2021-03-25] MEDS: ASCORBIC ACID 500 MG TABLET PO SCH ×3 (07:55→20:40)
[2021-03-25] MEDS: DULOXETINE 30 MG CAP PO SCH (07:55)
[2021-03-25] MEDS: METOPROLOL TAR 50 MG TAB PO SCH ×2 (07:55→20:41)
[2021-03-25] MEDS: LACTOBACILLUS/ACIDOPHILUS TAB PO SCH ×3 (07:55→20:41)
[2021-03-25] MEDS: ZINC SULFATE 220 MG CAP PO SCH (07:55)
[2021-03-25] MEDS: MAGNESIUM OXIDE 400 MG TAB PO SCH ×2 (07:58→20:42)
[2021-03-25] MEDS: MULTIVITAMIN TAB PO SCH (07:58)
[2021-03-25] MEDS: GABAPENTIN 300 MG CAP PO SCH ×3 (07:58→20:40)
[2021-03-25] MEDS: FUROSEMIDE 20 MG/ 2ML VIAL IV SCH ×2 (07:59→16:18)
[2021-03-25] MEDS: DRONEDARONE 400 MG TAB PO SCH ×2 (07:59→20:41)
[2021-03-25] MEDS: THIAMINE HCL 100 MG TABLET PO SCH ×2 (07:59→20:41)
[2021-03-25] MEDS: INSULIN GLARGINE 100 UNITS/ML SQ SCH ×2 (08:00→20:40)
[2021-03-25] MEDS: INSULIN -REGULAR HUMAN 50 UNIT/0.5 ML ML SQ SCH ×4 (08:00→20:39)
--- NOTE | 2021-03-25 09:16 | RAD REPORT ---
EXAM DESCRIPTION: RAD - Chest Single View - 03/25/2021 6:22 am CLINICAL HISTORY: followup CHF/COVID Chest pain. COMPARISON: Chest Single View dated 03/24/2021; Chest Single View dated 03/23/2021; Chest Single View dated 03/22/2021; Chest Single View dated 03/21/2021 FINDINGS: Portable technique limits examination quality. Extensive bilateral pulmonary opacities show no significant interval change since yesterday's study. The heart is mildly enlarged in size. Degenerative changes are present both shoulders. IMPRESSION: Stable chest since 03/24/2021 study.
[2021-03-25] MEDS: REMDESIVIR (EUA) 100 MG in NA CHLORIDE 0.9% 250 ML IV SCH (09:29)
[2021-03-25] MEDS ORDERED: INSULIN GLARGINE 100 UNITS/ML SQ ONE (12:00)
[2021-03-25] MEDS: RIVAROXABAN 20 MG TABLET PO SCH (17:34)
[2021-03-25] MEDS: ATORVASTATIN 40 MG TAB PO SCH (20:41)
[2021-03-26] MEDS: METHYLPREDNISOLONE 40 MG INJ IV SCH ×3 (00:30→16:13)
[2021-03-26] MEDS: ACETAMINOPHEN 500 MG TAB PO PRN (01:39)
[2021-03-26 05:00] LABS: Absolute Lymphocytes (CBC) 0.7 K/uL (0.7-4.9); Basophils % 0.1 % (0-1.3); Hematocrit 41.1 % (36.0-45.0); Lymphocytes % 7.3 % (15.3-44.8); MPV 10.2 fL (7.6-11.3); RBC Red Blood Cell Count 4.48 M/uL (3.86-4.86)
[2021-03-26 05:35] LABS: Albumin 2.4 g/dL (3.4-5.0); Bilirubin Direct 0.2 mg/dL (0-0.2); Bilirubin Total 0.6 mg/dL (0.2-1.0); C-Reactive Protein 20.9 mg/L (<3.00); Ferritin 1358.6 ng/mL (8-388); Magnesium 2.6 mg/dL (1.8-2.4); Potassium 4.6 mmol/L (3.5-5.1); Protein, Total 6.6 g/dL (6.4-8.2)
[2021-03-26] MEDS: LEVOTHYROXINE SOD 0.075 MG TAB PO SCH (05:50)
--- NOTE | 2021-03-26 06:07 | P.PN ---
Subjective Date of Service: 03/26/21 Primary Care Provider: Dr. Hernandez Chief Complaint: Shortness of breath Subjective: Other (Patient eating breakfast at the side of the table. Patient was restless overnight. Currently on high flow. No distress noted.) Physical Examination - Vital Signs Temperature: 97.0 F Blood Pressure: 120/67 Pulse: 55 Respirations: 20 Pulse Ox (%): 86 - Studies Microbiology Data (last 24 hrs): 03/20/21 18:27 Blood - Blood Aerobic Blood Culture - Final No growth in 5 days. 03/20/21 18:27 Blood - Blood Anaerobic Blood Culture - Final No growth in 5 days. 03/20/21 18:08 Blood - Blood Aerobic Blood Culture - Final No growth in 5 days. 03/20/21 18:08 Blood - Blood Anaerobic Blood Culture - Final No growth in 5 days. Assessment & Plan Discharge Plan: Home Plan to discharge in: Greater than 2 days Physician Review Additional Text: CXR: COMPARISON: Chest Single View dated 01/11/2019; Chest Pa And Lat (2 Views) dated 07/28/2018; CHEST SINGLE VIEW dated 11/30/2013; CHEST SINGLE VIEW dated 1 FINDINGS: Cardiomegaly. Increased prominence of the pulmonary vasculature. No fractures seen. No focal consolidative airspace disease. IMPRESSION: Vascular congestion without overt edema. Follow-up chest x-ray: COMPARISON: Chest Single View dated 03/24/2021; Chest Single View dated 03/23/2021; Chest Single View dated 03/22/2021; Chest Single View dated 03/21/2021 FINDINGS: Portable technique limits examination quality. Extensive bilateral pulmonary opacities show no significant interval change since yesterday's study. The heart is mildly enlarged in size. Degenerative changes are present both shoulders. IMPRESSION: Stable chest since 03/24/2021 study. Physical Exam: General: Alert, In no apparent distress, Oriented x3, Cooperative HEENT: Atraumatic, Normocephalic, PERRLA, Mucous membr. moist/pink Neck: Supple Respiratory: No respiratory distress noted. Currently on high flow at 100%. Patient able to sit appropriately eating breakfast. Cardiovascular: Normal pulses, Regular rate/rhythm Gastrointestinal: Normal bowel sounds, No tenderness, No masses, No rebound, No guarding Musculoskeletal: No erythema, No tenderness, No warmth Integumentary: No significant edema to the lower extremity. 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 Patient remains on high flow at 100%. Ferritin elevated at 1358 previously 975. CRP improved from 22-20. Continue remdesivir. Liver function stable. Continue to monitor liver function test. Liver function tests within normal range. Continue IV Solu-Medrol. Will decrease Lasix IV to once daily. Chest x-ray unchanged. Encourage incentive spirometer, proning. Physical therapy to continue to assess and treat. Patient remains stable on Multaq and Xarelto for her atrial fibrillation. Continue 1500 cc/day fluid restriction. Continue to monitor closely. Will have respiratory wean her off the high flow. Continue to discuss with cardiology and pulmonology. Wait recommendations from pulmonology. Anticipate improvement over the next several days. Will continue current plan of care. Will discuss with daughter. Acute renal failure likely overdiuresis: Renal function stable. Will decrease IV Lasix to daily Atrial fibrillation on chronic anticoagulation therapy with RVR: Continue with Multaq and Xarelto as recommended by cardiology. 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 Continue to adjust Lantus for better diabetic control. Sliding scale in place. Hypertension: Will continue with Lopressor. Lisinopril has been discontinued. Hyperlipidemia: Will continue with Lipitor Hypothyroidism:: Will continue with Synthroid GERD: Will continue with Protonix Obesity: Lifestyle modification education provided. Diarrhea: Overall better. Recently on Antibiotics for toothache. Currently on Lactobacillus. C. difficile pending DVT prophylaxis: Xarelto CODE STATUS: Full code [facility] [email or web address] minutes: Home at discharge. Home with Oxygen. May need walker or device. Await recs from PT. Anticipate home in the next 2 to 3 days. Time Spent Managing Pts Care (In Minutes): 55
[2021-03-26] MEDS: INSULIN -REGULAR HUMAN 50 UNIT/0.5 ML ML SQ SCH ×4 (07:30→21:00)
[2021-03-26] MEDS: GABAPENTIN 300 MG CAP PO SCH ×3 (07:57→21:00)
[2021-03-26] MEDS: MULTIVITAMIN TAB PO SCH (07:57)
[2021-03-26] MEDS: ZINC SULFATE 220 MG CAP PO SCH (07:58)
[2021-03-26] MEDS: THIAMINE HCL 100 MG TABLET PO SCH ×2 (07:58→21:00)
[2021-03-26] MEDS: DULOXETINE 30 MG CAP PO SCH (07:58)
[2021-03-26] MEDS: VITAMIN D 1000 UNIT TAB PO SCH (07:58)
[2021-03-26] MEDS: ASCORBIC ACID 500 MG TABLET PO SCH ×3 (07:58→21:00)
[2021-03-26] MEDS: MAGNESIUM OXIDE 400 MG TAB PO SCH ×2 (07:58→21:00)
[2021-03-26] MEDS: FUROSEMIDE 20 MG/ 2ML VIAL IV SCH ×2 (07:59→16:13)
[2021-03-26] MEDS: DRONEDARONE 400 MG TAB PO SCH ×2 (07:59→21:00)
[2021-03-26] MEDS: LACTOBACILLUS/ACIDOPHILUS TAB PO SCH ×3 (08:00→21:00)
[2021-03-26] MEDS: METOPROLOL TAR 50 MG TAB PO SCH ×2 (08:00→21:00)
[2021-03-26] MEDS: REMDESIVIR (EUA) 100 MG in NA CHLORIDE 0.9% 250 ML IV SCH (08:58)
[2021-03-26] MEDS: INSULIN GLARGINE 100 UNITS/ML SQ SCH ×2 (09:37→21:00)
[2021-03-26] MEDS: RIVAROXABAN 20 MG TABLET PO SCH (17:02)
[2021-03-26] MEDS: ATORVASTATIN 40 MG TAB PO SCH (21:00)
--- NOTE | 2021-03-26 21:31 | P.CNS ---
Date of Consult: 03/26/21 (TV) Reason for Consult: Resp Failure Primary Care Provider: Dr. Hernandez Chief Complaint: Shortness of breath History of Present Illness: Pt 60, Hx of AFIB, Metabolic synd and CHF AW will SOB and mild hypoxemia/ Lasix was DC recently. Cardiac sim okay recently Allergies carbidopa [From Sinemet] Allergy (Mild, Verified 03/20/21 22:04) Hives levodopa [From Sinemet] Allergy (Mild, Verified 03/20/21 22:04) Hives morphine Adverse Reaction (Intermediate, Verified 03/20/21 22:04) VOMITING Home Medications: Atorvastatin Calcium [Lipitor*] 40 mg PO BEDTIME 08/26/18 Cholecalciferol (Vitamin D3) [Vitamin D 1000 Iu Tab*] 1,000 unit PO BID 08/26/18 Dronedarone [Multaq*] 400 mg PO BID 08/26/18 Dulaglutide [Trulicity] 3 mg SQ DIRECTED 08/26/18 Insulin Degludec [Tresiba Flextouch U-100] 0 unit SQ DAILY 08/26/18 Levothyroxine Sodium [Synthroid] 150 mcg PO DAILY 08/26/18 Magnesium Oxide [Magnesium] 400 mg PO BID 08/26/18 Metoprolol Tartrate [Lopressor*] 50 mg PO BID 08/26/18 Potassium Chloride [Klor-Con M20] 20 meq PO BID 08/26/18 Rivaroxaban [Xarelto*] 20 mg PO DAILY AFTER SUPPER 08/26/18 lisinopriL [Prinivil*] 5 mg PO DAILY 08/26/18 Gabapentin [Neurontin] 600 mg PO TID 03/20/21 Multivitamin 1 each PO DAILY 03/20/21 [place]-3/Dha/Epa/Fish Oil [Fish Oil 1,000 mg Softgel] 1 each PO DAILY 03/20/21 Zolpidem Tartrate 10 mg PO BEDTIME PRN 03/20/21 - Past Medical/Surgical History Diabetic: Yes -: Atrial fibrillation -: Chronic anticoagulation therapy -: Diabetes mellitus type 2 insulin-dependent -: Hypertension -: Diastolic CHF -: Hyperlipidemia -: Hypothyroidism -: GERD -: Obesity -: LAP-BAND -: Cholecystectomy -: Hysterectomy -: Right wrist surgery -: Left ankle surgery Psychosocial/ Personal History: Patient lives at home. She is a . - Social History Alcohol use: No CD- Drugs: No Caffeine use: Yes Place of Residence: Home Review of Systems Respiratory: Cough, Shortness of Breath Physical Examination Temp Pulse Resp BP Pulse Ox 96.9 F 57 20 136/64 95 03/26/21 19:00 03/26/21 20:32 03/26/21 20:32 03/26/21 20:32 03/26/21 19:00 - Problems (1) COVID-19 Current Visit: Yes Status: Acute Plan: PT is 60 AW resp fialure from COVID/,Sat Satisfactory. CPA helping on high conc of O2/LAbs and chem reviewed/ CRP i s decliningEcho normal/ Request pharm for Barcitinib/ on LAsix
[2021-03-27] MEDS: METHYLPREDNISOLONE 40 MG INJ IV SCH ×3 (00:05→16:45)
[2021-03-27 05:11] LABS: Absolute Lymphocytes (CBC) 0.5 K/uL (0.7-4.9); Basophils % 0.1 % (0-1.3); Hematocrit 40.2 % (36.0-45.0); Lymphocytes % 5.5 % (15.3-44.8); MPV 9.7 fL (7.6-11.3); RBC Red Blood Cell Count 4.38 M/uL (3.86-4.86)
[2021-03-27 05:15] LABS: Albumin 2.4 g/dL (3.4-5.0); Bilirubin Direct 0.2 mg/dL (0-0.2); Bilirubin Total 0.7 mg/dL (0.2-1.0); C-Reactive Protein 12.4 mg/L (<3.00); Ferritin 1513.4 ng/mL (8-388); Magnesium 2.6 mg/dL (1.8-2.4); Potassium 4.5 mmol/L (3.5-5.1); Protein, Total 6.4 g/dL (6.4-8.2)
[2021-03-27] MEDS: LEVOTHYROXINE SOD 0.075 MG TAB PO SCH (05:34)
[2021-03-27] MEDS: INSULIN -REGULAR HUMAN 50 UNIT/0.5 ML ML SQ SCH ×4 (07:30→20:34)
[2021-03-27] MEDS: DRONEDARONE 400 MG TAB PO SCH (09:02)
[2021-03-27] MEDS: REMDESIVIR (EUA) 100 MG in NA CHLORIDE 0.9% 250 ML IV SCH (09:02)
[2021-03-27] MEDS: INSULIN GLARGINE 100 UNITS/ML SQ SCH ×2 (09:02→20:34)
[2021-03-27] MEDS: GABAPENTIN 300 MG CAP PO SCH ×3 (09:02→20:35)
[2021-03-27] MEDS: ZINC SULFATE 220 MG CAP PO SCH (09:02)
[2021-03-27] MEDS: MAGNESIUM OXIDE 400 MG TAB PO SCH ×2 (09:03→20:36)
[2021-03-27] MEDS: ASCORBIC ACID 500 MG TABLET PO SCH ×3 (09:03→20:36)
[2021-03-27] MEDS: DULOXETINE 30 MG CAP PO SCH (09:03)
[2021-03-27] MEDS: THIAMINE HCL 100 MG TABLET PO SCH ×2 (09:03→20:36)
[2021-03-27] MEDS: BARICITINIB 2 MG TABLET PO SCH (09:03)
[2021-03-27] MEDS: LACTOBACILLUS/ACIDOPHILUS TAB PO SCH ×3 (09:03→20:36)
[2021-03-27] MEDS: VITAMIN D 1000 UNIT TAB PO SCH (09:03)
[2021-03-27] MEDS: MULTIVITAMIN TAB PO SCH (09:03)
[2021-03-27] MEDS: METOPROLOL TAR 50 MG TAB PO SCH ×2 (09:03→20:38)
[2021-03-27] MEDS: FUROSEMIDE 20 MG/ 2ML VIAL IV SCH ×2 (09:04→16:45)
[2021-03-27] MEDS ORDERED: ENSURE HIGH PROTEIN 237 ML CAN PO SCH (15:00)
[2021-03-27] MEDS: RIVAROXABAN 20 MG TABLET PO SCH (16:45)
[2021-03-27] MEDS: DRONEDARONE 400 MG PO SCH (17:29)
--- NOTE | 2021-03-27 17:47 | P.PN ---
Subjective Date of Service: 03/27/21 (TV) Primary Care Provider: Dr. 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 Labs reviewed/
[2021-03-27] MEDS ORDERED: SPIRONOLACTONE 25 MG TABLET PO SCH (18:00)
[2021-03-27] MEDS: ATORVASTATIN 40 MG TAB PO SCH (20:36)
[2021-03-27] MEDS: SPIRONOLACTONE 25 MG TABLET PO SCH (20:37)
[2021-03-27] MEDS: ZOLPIDEM TARTRATE 10 MG TABLET PO PRN (20:46)
[2021-03-27] MEDS ORDERED: DRONEDARONE 400 MG PO SCH (21:00)
[2021-03-28] MEDS: METHYLPREDNISOLONE 40 MG INJ IV SCH ×3 (00:14→17:09)
[2021-03-28 05:07] LABS: Albumin 2.4 g/dL (3.4-5.0); Bilirubin Direct 0.2 mg/dL (0-0.2); Bilirubin Total 0.7 mg/dL (0.2-1.0); C-Reactive Protein 12.4 mg/L (<3.00); Ferritin 1173.6 ng/mL (8-388); Protein, Total 6.5 g/dL (6.4-8.2)
[2021-03-28] MEDS: LEVOTHYROXINE SOD 0.075 MG TAB PO SCH (05:44)
[2021-03-28] MEDS: INSULIN -REGULAR HUMAN 50 UNIT/0.5 ML ML SQ SCH ×4 (07:30→21:30)
--- NOTE | 2021-03-28 08:14 | RAD REPORT ---
EXAM DESCRIPTION: RAD - Chest Single View - 03/28/2021 5:39 am CLINICAL HISTORY: Resp failure COMPARISON: Chest Single View dated 03/25/2021; Chest Single View dated 03/24/2021; Chest Single View dated 03/23/2021; Chest Single View dated 03/22/2021 FINDINGS: Bilateral interstitial airspace disease is similar to 03/25/2021. The lung volumes are sli ghtly improved. Similar cardiomegalyNo acute osseous abnormality. No significant pleural effusions or pneumothorax. IMPRESSION: No significant change from 03/25/2021 with persistent edema/CHF.
[2021-03-28] MEDS: ZINC SULFATE 220 MG CAP PO SCH (08:45)
[2021-03-28] MEDS: VITAMIN D 1000 UNIT TAB PO SCH (08:45)
[2021-03-28] MEDS: LACTOBACILLUS/ACIDOPHILUS TAB PO SCH ×3 (08:45→21:25)
[2021-03-28] MEDS: THIAMINE HCL 100 MG TABLET PO SCH ×2 (08:46→21:26)
[2021-03-28] MEDS: METOPROLOL TAR 50 MG TAB PO SCH ×2 (08:46→21:26)
[2021-03-28] MEDS: MAGNESIUM OXIDE 400 MG TAB PO SCH ×2 (08:46→21:25)
[2021-03-28] MEDS: MULTIVITAMIN TAB PO SCH (08:46)
[2021-03-28] MEDS: SPIRONOLACTONE 25 MG TABLET PO SCH (08:46)
[2021-03-28] MEDS: ASCORBIC ACID 500 MG TABLET PO SCH ×3 (08:46→21:26)
[2021-03-28] MEDS: GABAPENTIN 300 MG CAP PO SCH ×3 (08:46→21:24)
[2021-03-28] MEDS: DULOXETINE 30 MG CAP PO SCH (08:47)
[2021-03-28] MEDS: FUROSEMIDE 20 MG/ 2ML VIAL IV SCH ×2 (08:48→17:09)
[2021-03-28] MEDS: REMDESIVIR (EUA) 100 MG in NA CHLORIDE 0.9% 250 ML IV SCH (08:48)
[2021-03-28] MEDS: DRONEDARONE 400 MG PO SCH ×2 (08:49→17:13)
[2021-03-28] MEDS: BARICITINIB 2 MG TABLET PO SCH (08:49)
[2021-03-28] MEDS: INSULIN GLARGINE 100 UNITS/ML SQ SCH ×2 (08:58→21:29)
[2021-03-28] MEDS: RIVAROXABAN 20 MG TABLET PO SCH (17:09)
--- NOTE | 2021-03-28 17:35 | P.PN ---
Subjective Date of Service: 03/27/21 Patient still very hypoxic & on FiO2 of 100%. Not really interacting much. Apparently has been sleeping quite a bit today. Review of Systems 10-point ROS is otherwise unremarkable Physical Examination - Vital Signs Temperature: 97.5 F Blood Pressure: 126/69 Pulse: 137 Respirations: 23 Pulse Ox (%): 94 - Physical Exam General: Alert, In no apparent distress, Oriented x3 Respiratory: Diminished, Expiratory wheezes Cardiovascular: Regular rate/rhythm, Normal S1 S2, Systolic murmur Gastrointestinal: Normal bowel sounds, Soft and benign, Non-distended, No tenderness Musculoskeletal: No clubbing, No swelling, No tenderness Neurological: Sensation intact, Cranial nerves 3-12 intact - Studies Medications List Reviewed: Yes Assessment & Plan - Problems (Diagnosis) (1) Pneumonia due to COVID-19 virus Current Visit: Yes Status: Acute (2) Hypoxemia Current Visit: Yes Status: Acute (3) Ground glass opacity present on imaging of lung Current Visit: Yes Status: Acute (4) History of atrial fibrillation Current Visit: Yes Status: Acute (5) Morbid obesity Current Visit: Yes Status: Acute - Plan Continue with plan of care as mentioned below: 1. Continue with IV steroids 2. Monitor inflammatory markers 3. Continue monitoring with diagnostic studies 4. O2 per protocol 5. Pulmonary consultation appreciated 6. Continue with albuterol inhaler therapy; also supportive care 7. Monitor LFTs 8. GI and DVT prophylaxis Discharge Plan: Home Plan to discharge in: Greater than 2 days - Advance Directives Does patient have a Living Will: No Does patient have a Durable POA for Healthcare: Yes - Code Status/Comfort Care Code Status Assessed: Yes Code Status: Full Code Critical Care: No Time Spent Managing PTS Care (In Minutes): 45
--- NOTE | 2021-03-28 20:43 | P.PN ---
Subjective Date of Service: 03/28/21 Primary Care Provider: Dr. Hernandez Chief Complaint: Resp failure from COVId No change/ on 100% Fio2, BIPAP Review of Systems General: Weakness Respiratory: Shortness of Breath Physical Examination - Vital Signs Temperature: 97.8 F Blood Pressure: 117/65 Pulse: 65 Respirations: 24 Pulse Ox (%): 90 - Studies Medications List Reviewed: Yes Assessment & Plan - Problems (Diagnosis) (1) COVID-19 Current Visit: Yes Status: Acute Plan: Resp failure NC on Max therapy/LAbs reviewed/ CXRY worse ? On steroids and Barcitinib CW Lasix/ Went ot AFib this afternoon Now SR/ Eatingand Drinking. 60% of dinner./ Prone positining Cw Lasix
[2021-03-28] MEDS: ATORVASTATIN 40 MG TAB PO SCH (21:26)
[2021-03-28] MEDS: ZOLPIDEM TARTRATE 10 MG TABLET PO PRN (21:40)
[2021-03-29] MEDS: METHYLPREDNISOLONE 40 MG INJ IV SCH ×3 (00:40→17:28)
[2021-03-29] MEDS: LEVOTHYROXINE SOD 0.075 MG TAB PO SCH (06:04)
[2021-03-29 07:08] LABS: C-Reactive Protein 8.25 mg/L (<3.00); Ferritin 899.8 ng/mL (8-388)
--- NOTE | 2021-03-29 07:31 | RAD REPORT ---
EXAM DESCRIPTION: RAD - Chest Single View - 03/29/2021 5:41 am CLINICAL HISTORY: Resp failure COMPARISON: Chest Single View dated 03/28/2021; Chest Single View dated 03/25/2021; Chest Single View dated 03/24/2021; Chest Single View dated 03/23/2021 FINDINGS: Bilateral pulmonary edema is not significantly changed from prior. Cardiomegaly. No fractu res identified. Visualized upper abdomen is unremarkable. IMPRESSION: Widespread pulmonary edema is not significantly changed from prior.
[2021-03-29] MEDS: INSULIN -REGULAR HUMAN 50 UNIT/0.5 ML ML SQ SCH ×4 (08:13→21:48)
[2021-03-29] MEDS: ASCORBIC ACID 500 MG TABLET PO SCH ×3 (08:14→21:47)
[2021-03-29] MEDS: MULTIVITAMIN TAB PO SCH (08:14)
[2021-03-29] MEDS: VITAMIN D 1000 UNIT TAB PO SCH (08:14)
[2021-03-29] MEDS: LACTOBACILLUS/ACIDOPHILUS TAB PO SCH ×3 (08:14→21:47)
[2021-03-29] MEDS: DULOXETINE 30 MG CAP PO SCH (08:14)
[2021-03-29] MEDS: DRONEDARONE 400 MG PO SCH ×2 (08:14→17:18)
[2021-03-29] MEDS: FUROSEMIDE 20 MG/ 2ML VIAL IV SCH (08:15)
[2021-03-29] MEDS: GABAPENTIN 300 MG CAP PO SCH ×3 (08:16→21:47)
[2021-03-29] MEDS: ZINC SULFATE 220 MG CAP PO SCH (08:16)
[2021-03-29] MEDS: THIAMINE HCL 100 MG TABLET PO SCH ×2 (08:16→21:50)
[2021-03-29] MEDS: SPIRONOLACTONE 25 MG TABLET PO SCH (08:17)
[2021-03-29] MEDS: MAGNESIUM OXIDE 400 MG TAB PO SCH ×2 (08:17→21:47)
[2021-03-29] MEDS: BARICITINIB 2 MG TABLET PO SCH (08:18)
[2021-03-29] MEDS: INSULIN GLARGINE 100 UNITS/ML SQ SCH ×2 (08:18→21:49)
[2021-03-29] MEDS: METOPROLOL TAR 50 MG TAB PO SCH ×2 (08:19→21:00)
--- NOTE | 2021-03-29 09:18 | P.PN ---
Date of Service: 03/28/21 Subjective Patient states she feels a little bit better. Still very hypoxic. Chest x-ray with diffuse infiltrates. Review of Systems 10-point ROS is otherwise unremarkable Physical Examination - Vital Signs Reviewed - Physical Exam General: Alert, In no apparent distress Respiratory: Diminished, Expiratory wheezes Cardiovascular: Regular rate/rhythm, Normal S1 S2 Gastrointestinal: Normal bowel sounds, No tenderness Neurological: Normal speech, Normal tone, Normal affect Assessment & Plan - Problems (Diagnosis) (1) Pneumonia due to COVID-19 virus Current Visit: Yes Status: Acute (2) Hypoxemia Current Visit: Yes Status: Acute (3) Ground glass opacity present on imaging of lung Current Visit: Yes Status: Acute (4) History of atrial fibrillation Current Visit: Yes Status: Acute (5) Morbid obesity Current Visit: Yes Status: Acute - Plan 1. Continue with IV steroids/baricitinib/finished remdesivir 2. Monitor inflammatory markers; these are plateauing 3. Repeat chest x-ray was progressive infiltrate 4. Continue with BiPAP support 5. Pulmonary consultation appreciated 6. Continue with albuterol inhaler therapy; also additional supportive measures 7. Updated daughter on patient clinical condition 8. GI and DVT prophylaxis - Advance Directives Does patient have a Living Will: No Does patient have a Durable POA for Healthcare: Yes
[2021-03-29 11:13] LABS: Absolute Lymphocytes (CBC) 0.5 K/uL (0.7-4.9); Basophils % 0.2 % (0-1.3); Lymphocytes % 4.4 % (15.3-44.8); MPV 9.2 fL (7.6-11.3); RBC Red Blood Cell Count 4.63 M/uL (3.86-4.86)
--- NOTE | 2021-03-29 11:45 | EKG ---
Test Date: 2021-03-28 Test Time: 15:54:47 Senior Bi Developer: BALAJI MEASUREMENT RESULTS: Intervals: Rate: 139 [place]: QRSD: 90 QT: 304 QTc: 462 [place]: P: [place]: QRS: 11 T: 16 INTERPRETIVE STATEMENTS: Atrial fibrillation with rapid ventricular response Nonspecific T wave abnormality, probably digitalis effect Abnormal ECG Compared to ECG 03/20/2021 13:32:56 T-wave abnormality now present Sinus tachycardia no longer present Electronically Signed On 03-29-21 11:42:16 CDT by Earl Burnette
[2021-03-29 11:57] LABS: Albumin 2.4 g/dL (3.4-5.0); Bilirubin Total 0.9 mg/dL (0.2-1.0); Potassium 4.8 mmol/L (3.5-5.1); Protein, Total 6.3 g/dL (6.4-8.2)
[2021-03-29] MEDS: IVERMECTIN 3 MG TABLET PO SCH (12:33)
[2021-03-29 12:48] LABS: Platelet Estimate ADEQ; White Blood Cell Scan OK (OK)
[2021-03-29 12:49] LABS: Blood Morphology Comment NOT SEEN (NOT SEEN)
--- NOTE | 2021-03-29 16:56 | P.PN ---
Subjective Date of Service: 03/29/21 (TV) Primary Care Provider: Dr. Hernandez Chief Complaint: Resp failure from COVId NC very hypoxic/ eating an drinking. HF alternating with BIPAP. CXRY Severe oneumonia Physical Examination - Vital Signs Temperature: 97.4 F Blood Pressure: 137/60 Pulse: 53 Respirations: 25 Pulse Ox (%): 100 - Studies Medications List Reviewed: Yes Assessment & Plan - Problems (Diagnosis) (1) COVID-19 Current Visit: Yes Status: Acute Plan: REs failure/ labs revi. CXRY diffuse ILD/ on huigh concentration of O2/ ivermectin/on Barcitinib/ tolerating diet
[2021-03-29] MEDS: RIVAROXABAN 20 MG TABLET PO SCH (17:19)
[2021-03-29] MEDS ORDERED: METHYLPREDNISOLONE 40 MG INJ ONE (17:44)
[2021-03-29] MEDS: ATORVASTATIN 40 MG TAB PO SCH (21:47)
[2021-03-29] MEDS: DOCUSATE NA 100 MG CAP PO SCH (22:08)
[2021-03-30] MEDS: METHYLPREDNISOLONE 40 MG INJ IV SCH ×3 (00:06→17:26)
--- NOTE | 2021-03-30 01:08 | P.PN ---
Date of Service: 03/29/21 Subjective Patient sitting up and eating lunch. She appears to be looking better. She states she feels better. She is on high-flow oxygen and maintaining her oxygen saturations up to 95%. She is doing a little better but still requiring a large amount of oxygen. When she improves she may be safe for long-term acute care hospital placement. Review of Systems 10-point ROS is otherwise unremarkable Physical Examination - Vital Signs Reviewed - Physical Exam General: Alert, In no apparent distress Respiratory: Diminished Cardiovascular: Regular rate/rhythm, Normal S1 S2 Gastrointestinal: Normal bowel sounds, No tenderness Neurological: Normal speech, Normal tone, Normal affect Assessment & Plan - Problems (Diagnosis) (1) Pneumonia due to COVID-19 virus Current Visit: Yes Status: Acute (2) Hypoxemia Current Visit: Yes Status: Acute (3) Ground glass opacity present on imaging of lung Current Visit: Yes Status: Acute (4) History of atrial fibrillation Current Visit: Yes Status: Acute (5) Morbid obesity Current Visit: Yes Status: Acute - Plan 1. Continue with IV steroids/baricitinib/finished remdesivir 2. Monitor inflammatory markers; these are improving 3. May repeat chest x-ray if symptoms worsen 4. Continue with BiPAP support and alternate with high-flow oxygen 5. Pulmonary consultation appreciated 6. Continue with albuterol inhaler therapy; also additional supportive measures 7. Updated daughter on patient clinical condition; she was able to come see the patient today. She states she is still looking pretty weak. 8. GI and DVT prophylaxis - Advance Directives Does patient have a Living Will: No Does patient have a Durable POA for Healthcare: Yes
[2021-03-30 05:41] LABS: Absolute Lymphocytes (CBC) 0.5 K/uL (0.7-4.9); Basophils % 0.1 % (0-1.3); Hematocrit 40.7 % (36.0-45.0); Lymphocytes % 4.2 % (15.3-44.8); MPV 9.2 fL (7.6-11.3); RBC Red Blood Cell Count 4.42 M/uL (3.86-4.86)
--- NOTE | 2021-03-30 05:58 | P.PN ---
Subjective Date of Service: 03/30/21 Primary Care Provider: Dr. Hernandez Chief Complaint: Resp failure from COVId Subjective: Improving, Other (Currently on high flow and CPAP) Physical Examination - Vital Signs Temperature: 97 F Blood Pressure: 133/76 Pulse: 56 Respirations: 18 Pulse Ox (%): 92 - Studies Medications List Reviewed: Yes Assessment & Plan Discharge Plan: Home Plan to discharge in: Greater than 2 days Physician Review Additional Text: Initial CXR: COMPARISON: Chest Single View dated 01/11/2019; Chest Pa And Lat (2 Views) dated 07/28/2018; CHEST SINGLE VIEW dated 11/30/2013; CHEST SINGLE VIEW dated 06/26/2012 FINDINGS: Cardiomegaly. Increased prominence of the pulmonary vasculature. No fractures seen. No focal consolidative airspace disease. IMPRESSION: Vascular congestion without overt edema. Follow-up chest x-ray 03/30/2021: COMPARISON: Chest Single View dated 03/29/2021; Chest Single View dated 03/28/2021; Chest Single View dated 03/25/2021; Chest Single View dated 03/24/2021 FINDINGS: Unchanged pulmonary edema. Cardiomegaly No acute osseous abnormality. No significant pleural effusions or pneumothorax. IMPRESSION: Pulmonary edema is similar to 03/29/2021. Physical Exam: General: Alert, In no apparent distress, Oriented x3, Cooperative HEENT: Atraumatic, Normocephalic, PERRLA, Mucous membr. moist/pink Neck: Supple Respiratory: No respiratory distress noted. Patient currently on high flow at this time. Patient also on CPAP at 10 Cardiovascular: Normal pulses, Regular rate/rhythm Gastrointestinal: Normal bowel sounds, No tenderness, No masses, No rebound, No guarding Musculoskeletal: No erythema, No tenderness, No warmth Integumentary: No significant edema to the lower extremity. 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 Continue to wean off CPAP and high flow. Encourage ambulation. Encourage incentive spirometer. Patient has finished course of remdesivir. Patient remains on baricitinib currently on dose 4 out of 16. Continue IV Solu-Medrol. Continue Aldactone. Physical therapy to continue to assess. Will discuss with pulmonology.. Patient remains stable on Multaq and Xarelto for her atrial fibrillation. Continue 1500 cc/day fluid restriction. Continue to monitor closely. Will have respiratory wean her off the high flow. Continue to discuss with cardiology and pulmonology. Anticipate continued improvement. Acute renal failure likely overdiuresis: Renal function stable. Patient now on Aldactone. Atrial fibrillation on chronic anticoagulation therapy with RVR: Continue with Multaq, Lopressor and Xarelto as recommended by cardiology. 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 Continue to adjust Lantus for better diabetic control. Sliding scale in place. Hypertension: Will continue with Lopressor. Lisinopril has been discontinued. Hyperlipidemia: Will continue with Lipitor Hypothyroidism:: Will continue with Synthroid GERD: Will continue with Protonix Obesity: Lifestyle modification education provided. Diarrhea: Overall better. Recently on Antibiotics for toothache. Currently on Lactobacillus. C. difficile pending DVT prophylaxis: Xarelto CODE STATUS: Full code Advance care [id number] minutes: Home at discharge. Home with Oxygen. May need walker or device. Await recs from PT. Time Spent Managing Pts Care (In Minutes): 55
[2021-03-30] MEDS: LEVOTHYROXINE SOD 0.075 MG TAB PO SCH (06:08)
[2021-03-30 06:18] LABS: Albumin 2.4 g/dL (3.4-5.0); Bilirubin Total 0.9 mg/dL (0.2-1.0); C-Reactive Protein 7.09 mg/L (<3.00); Magnesium 2.7 mg/dL (1.8-2.4); Phosphorus 4.6 mg/dL (2.5-4.9); Potassium 4.8 mmol/L (3.5-5.1); Protein, Total 6.4 g/dL (6.4-8.2)
--- NOTE | 2021-03-30 07:07 | RAD REPORT ---
EXAM DESCRIPTION: RAD - Chest Single View - 03/30/2021 6:42 am CLINICAL HISTORY: Resp failure COMPARISON: Chest Single View dated 03/29/2021; Chest Single View dated 03/28/2021; Chest Single View dated 03/25/2021; Chest Single View dated 03/24/2021 FINDINGS: Unchanged pulmonary edema. Cardiomegaly No acute osseous abnormality. No significant pleur al effusions or pneumothorax. IMPRESSION: Pulmonary edema is similar to 03/29/2021.
[2021-03-30] MEDS: INSULIN -REGULAR HUMAN 50 UNIT/0.5 ML ML SQ SCH ×4 (07:30→21:02)
[2021-03-30] MEDS: MAGNESIUM OXIDE 400 MG TAB PO SCH ×2 (09:00→21:05)
[2021-03-30] MEDS ORDERED: FUROSEMIDE 20 MG/ 2ML VIAL IV SCH (09:00)
[2021-03-30] MEDS: VITAMIN D 1000 UNIT TAB PO SCH (09:10)
[2021-03-30] MEDS: INSULIN GLARGINE 100 UNITS/ML SQ SCH ×2 (09:10→21:04)
[2021-03-30] MEDS: DULOXETINE 30 MG CAP PO SCH (09:10)
[2021-03-30] MEDS: DOCUSATE NA 100 MG CAP PO SCH ×2 (09:10→21:04)
[2021-03-30] MEDS: ZINC SULFATE 220 MG CAP PO SCH (09:10)
[2021-03-30] MEDS: LACTOBACILLUS/ACIDOPHILUS TAB PO SCH ×3 (09:11→21:04)
[2021-03-30] MEDS: GABAPENTIN 300 MG CAP PO SCH ×3 (09:11→21:04)
[2021-03-30] MEDS: THIAMINE HCL 100 MG TABLET PO SCH ×2 (09:11→21:08)
[2021-03-30] MEDS: SPIRONOLACTONE 25 MG TABLET PO SCH (09:12)
[2021-03-30] MEDS: MULTIVITAMIN TAB PO SCH (09:12)
[2021-03-30] MEDS: ASCORBIC ACID 500 MG TABLET PO SCH ×3 (09:13→21:04)
[2021-03-30] MEDS: METOPROLOL TAR 50 MG TAB PO SCH ×2 (09:13→21:00)
[2021-03-30] MEDS: DRONEDARONE 400 MG PO SCH ×2 (09:16→17:30)
[2021-03-30] MEDS: BARICITINIB 2 MG TABLET PO SCH (09:17)
--- NOTE | 2021-03-30 16:33 | P.PN ---
Subjective Date of Service: 03/30/21 (TV) Primary Care Provider: Dr. Hernandez Chief Complaint: Resp failure from COVId Doing better Alert and repsonsive . Still on high concentration of O2 Review of Systems Respiratory: Shortness of Breath Physical Examination - Vital Signs Temperature: 97.9 F Blood Pressure: 108/72 Pulse: 71 Respirations: 17 Pulse Ox (%): 83 - Studies Medications List Reviewed: Yes Assessment & Plan - Problems (Diagnosis) (1) COVID-19 Current Visit: Yes Status: Acute Plan: Resp failure pt is improving/ Alert and responsive/ Still onFio0 of 100 with high flow/ labs reviewed/ CXRY NC/ Reduce Spironolactone to 12.5 mg/ DC Lasix
[2021-03-30] MEDS ORDERED: LACTULOSE 20 GM/30 ML UCUP PO PRN (16:49)
[2021-03-30] MEDS: RIVAROXABAN 20 MG TABLET PO SCH (17:26)
[2021-03-30] MEDS: ZOLPIDEM TARTRATE 10 MG TABLET PO PRN (21:04)
[2021-03-30] MEDS: ATORVASTATIN 40 MG TAB PO SCH (21:05)
[2021-03-31] MEDS: METHYLPREDNISOLONE 40 MG INJ IV SCH ×3 (00:10→17:00)
[2021-03-31 04:33] VITALS: BMI 45.5
[2021-03-31] MEDS: LEVOTHYROXINE SOD 0.075 MG TAB PO SCH (05:30)
[2021-03-31 05:32] LABS: Absolute Lymphocytes (CBC) 0.5 K/uL (0.7-4.9); Basophils % 0.1 % (0-1.3); Hematocrit 38.4 % (36.0-45.0); Lymphocytes % 4.5 % (15.3-44.8); MPV 9.8 fL (7.6-11.3); RBC Red Blood Cell Count 4.22 M/uL (3.86-4.86)
--- NOTE | 2021-03-31 05:50 | P.PN ---
Subjective Date of Service: 03/31/21 Primary Care Provider: Dr. Hernandez Chief Complaint: Resp failure from COVId Subjective: Improving (Patient reports improvement. On HF) Physical Examination - Vital Signs Temperature: 96.9 F Blood Pressure: 141/65 Pulse: 50 Respirations: 17 Pulse Ox (%): 93 - Studies Medications List Reviewed: Yes Assessment & Plan Discharge Plan: Other (Home vs LTAC) Plan to discharge in: Greater than 2 days Physician Review Additional Text: Initial CXR: COMPARISON: Chest Single View dated 01/11/2019; Chest Pa And Lat (2 Views) dated 07/28/2018; CHEST SINGLE VIEW dated 11/30/2013; CHEST SINGLE VIEW dated 06/26/2012 FINDINGS: Cardiomegaly. Increased prominence of the pulmonary vasculature. No fractures seen. No focal consolidative airspace disease. IMPRESSION: Vascular congestion without overt edema. Follow-up chest x-ray 03/30/2021: COMPARISON: Chest Single View dated 03/29/2021; Chest Single View dated 03/28/2021; Chest Single View dated 03/25/2021; Chest Single View dated 03/24/2021 FINDINGS: Unchanged pulmonary edema. Cardiomegaly No acute osseous abnormality. No significant pleural effusions or pneumothorax. IMPRESSION: Pulmonary edema is similar to 03/29/2021. Physical Exam: General: Alert, In no apparent distress, Oriented x3, Cooperative HEENT: Atraumatic, Normocephalic, PERRLA, Mucous membr. moist/pink Neck: Supple Respiratory: No respiratory distress noted. Patient currently on high flow at this time. Cardiovascular: Normal pulses, Regular rate/rhythm Gastrointestinal: Normal bowel sounds, No tenderness, No masses, No rebound, No guarding Musculoskeletal: No erythema, No tenderness, No warmth Integumentary: No significant edema to the lower extremity. 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 CRP/Ferritin improved. Continue to wean off CPAP and high flow. Encourage ambulation. Encourage incentive spirometer. Patient has finished course of remdesivir. Patient remains on baricitinib. Continue IV Solu- Medrol. Continue Aldactone. Physical therapy to continue to assess. Will discuss with pulmonology.. Patient remains stable on Multaq and Xarelto for her atrial fibrillation. Continue 1500 cc/day fluid restriction. Continue to monitor closely. Will have respiratory wean her off the high flow. Continue to discuss with cardiology and pulmonology. Anticipate continued improvement. Need to consider LTAC for the patient. Will discuss with her daughter. Patient seems agreeable. Acute renal failure likely overdiuresis: Renal function stable. Patient now on Aldactone. Atrial fibrillation on chronic anticoagulation therapy with RVR: Continue with Multaq, Lopressor and Xarelto as recommended by cardiology. 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 Continue to adjust Lantus for better diabetic control. Sliding scale in place. Hypertension: Will continue with Lopressor. Lisinopril has been discontinued. Hyperlipidemia: Will continue with Lipitor Hypothyroidism:: Will continue with Synthroid GERD: Will continue with Protonix Obesity: Lifestyle modification education provided. Diarrhea: Overall better. Recently on Antibiotics for toothache. Currently on Lactobacillus. C. difficile pending DVT prophylaxis: Xarelto CODE STATUS: Full code Advance care [id number] minutes: Home at discharge. Home with Oxygen. But need to consider LTAC for the patient. Time Spent Managing Pts Care (In Minutes): 55
[2021-03-31 06:05] LABS: Albumin 2.3 g/dL (3.4-5.0); Bilirubin Total 0.7 mg/dL (0.2-1.0); C-Reactive Protein 4.65 mg/L (<3.00); Ferritin 803.5 ng/mL (8-388); Magnesium 2.5 mg/dL (1.8-2.4); Potassium 4.5 mmol/L (3.5-5.1); Protein, Total 6.1 g/dL (6.4-8.2)
[2021-03-31] MEDS: INSULIN -REGULAR HUMAN 50 UNIT/0.5 ML ML SQ SCH ×4 (07:30→21:52)
--- NOTE | 2021-03-31 07:45 | RAD REPORT ---
EXAM DESCRIPTION: RAD - Chest Single View - 03/31/2021 6:15 am CLINICAL HISTORY: Resp failure Chest pain. COMPARISON: Chest Single View dated 03/30/2021; Chest Single View dated 03/29/2021; Chest Single View dated 03/28/2021; Chest Single View dated 03/25/2021 FINDINGS: Portable technique limits examination quality. Since 03/30/2021, mild to moderate worsening in bilateral pulmonary opacities noted. The heart is enl arged. No displaced fractures. IMPRESSION: Mild to moderate worsening in lung aeration since comparative study.
[2021-03-31] MEDS: INSULIN GLARGINE 100 UNITS/ML SQ SCH ×2 (07:58→21:52)
[2021-03-31] MEDS: MAGNESIUM OXIDE 400 MG TAB PO SCH ×2 (09:00→21:00)
[2021-03-31] MEDS: DRONEDARONE 400 MG PO SCH ×2 (09:18→17:00)
[2021-03-31] MEDS: VITAMIN D 1000 UNIT TAB PO SCH (09:18)
[2021-03-31] MEDS: GABAPENTIN 300 MG CAP PO SCH ×3 (09:18→21:42)
[2021-03-31] MEDS: SPIRONOLACTONE 25 MG TABLET PO SCH (09:19)
[2021-03-31] MEDS: THIAMINE HCL 100 MG TABLET PO SCH ×2 (09:20→21:43)
[2021-03-31] MEDS: ASCORBIC ACID 500 MG TABLET PO SCH ×3 (09:20→21:43)
[2021-03-31] MEDS: LACTOBACILLUS/ACIDOPHILUS TAB PO SCH ×3 (09:20→21:43)
[2021-03-31] MEDS: MULTIVITAMIN TAB PO SCH (09:20)
[2021-03-31] MEDS: METOPROLOL TAR 50 MG TAB PO SCH ×2 (09:21→21:00)
[2021-03-31] MEDS: DULOXETINE 30 MG CAP PO SCH (09:21)
[2021-03-31] MEDS: ZINC SULFATE 220 MG CAP PO SCH (09:21)
[2021-03-31] MEDS: DOCUSATE NA 100 MG CAP PO SCH ×2 (09:21→21:43)
[2021-03-31] MEDS: IVERMECTIN 3 MG TABLET PO SCH (09:22)
[2021-03-31] MEDS: BARICITINIB 2 MG TABLET PO SCH (09:22)
[2021-03-31] MEDS: RIVAROXABAN 20 MG TABLET PO SCH (17:00)
--- NOTE | 2021-03-31 18:54 | P.PN ---
Subjective Date of Service: 03/31/21 (TV) Primary Care Provider: Dr. Hernandez Chief Complaint: Resp failure from COVId Improving. feeling better. Review of Systems Respiratory: Shortness of Breath Physical Examination - Vital Signs Temperature: 97.5 F Blood Pressure: 121/69 Pulse: 62 Respirations: 23 Pulse Ox (%): 88 - Studies Medications List Reviewed: Yes Assessment & Plan - Problems (Diagnosis) (1) COVID-19 Current Visit: Yes Status: Acute Plan: Doign well, Wean down on O2. LAbs reviewed/ MAx therapy for now
[2021-03-31] MEDS: ATORVASTATIN 40 MG TAB PO SCH (21:43)
[2021-03-31] MEDS: ASPIRIN EC 81 MG TAB PO SCH (21:43)
[2021-03-31] MEDS: ZOLPIDEM TARTRATE 10 MG TABLET PO PRN (21:51)
[2021-04-01] MEDS: METHYLPREDNISOLONE 40 MG INJ IV SCH ×3 (00:23→16:59)
[2021-04-01 05:48] LABS: Absolute Lymphocytes (CBC) 0.5 K/uL (0.7-4.9); Hematocrit 42.3 % (36.0-45.0); Lymphocytes % 4.6 % (15.3-44.8); MPV 9.4 fL (7.6-11.3); RBC Red Blood Cell Count 4.55 M/uL (3.86-4.86)
--- NOTE | 2021-04-01 05:58 | P.PN ---
Subjective Date of Service: 04/01/21 Primary Care Provider: Dr. Hernandez Chief Complaint: Resp failure from COVId Subjective: Other (Patient reports improvement. Currently on high flow at 100% with rate of 40) Physical Examination - Vital Signs Temperature: 97.3 F Blood Pressure: 137/77 Pulse: 56 Respirations: 18 Pulse Ox (%): 94 - Studies Medications List Reviewed: Yes Assessment & Plan Discharge Plan: LTAC Plan to discharge in: 48 Hours Physician Review Additional Text: Initial CXR: COMPARISON: Chest Single View dated 01/11/2019; Chest Pa And Lat (2 Views) dated 07/28/2018; CHEST SINGLE VIEW dated 11/30/2013; CHEST SINGLE VIEW dated 06/26/2012 FINDINGS: Cardiomegaly. Increased prominence of the pulmonary vasculature. No fractures seen. No focal consolidative airspace disease. IMPRESSION: Vascular congestion without overt edema. Follow-up chest x-ray 03/30/2021: COMPARISON: Chest Single View dated 03/29/2021; Chest Single View dated 03/28/2021; Chest Single View dated 03/25/2021; Chest Single View dated 03/24/2021 FINDINGS: Unchanged pulmonary edema. Cardiomegaly No acute osseous abnormality. No significant pleural effusions or pneumothorax. IMPRESSION: Pulmonary edema is similar to 03/29/2021. Physical Exam: General: Alert, In no apparent distress, Oriented x3, Cooperative HEENT: Atraumatic, Normocephalic, PERRLA, Mucous membr. moist/pink Neck: Supple Respiratory: No respiratory distress noted. Patient currently on high flow at this time. Cardiovascular: Normal pulses, Regular rate/rhythm Gastrointestinal: Normal bowel sounds, No tenderness, No masses, No rebound, No guarding Musculoskeletal: No erythema, No tenderness, No warmth Integumentary: No significant edema to the lower extremity. 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 CRP and ferritin reviewed. Patient remains on high flow at 100% with a rate of 40. Encourage incentive spirometer. Patient has finished course of r emdesivir. Patient remains on baricitinib. Continue IV Solu-Medrol. Continue Aldactone. Physical therapy to continue to assess. Patient fell while going to the bedside commode yesterday. No significant pain to the right knee. Case discussed with pulmonology. Patient would benefit with long-term acute care facility placement. This was discussed in detail with daughter and patient. Both in agreement. We will pursue long-term acute care facility placement to continue current treatment plan Acute renal failure likely overdiuresis: Renal function stable. Patient now on Aldactone. Atrial fibrillation on chronic anticoagulation therapy with RVR: Continue with Multaq, Lopressor and Xarelto as recommended by cardiology. 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 Continue to adjust Lantus for better diabetic control. Sliding scale in place. Hypertension: Will continue with Lopressor. Lisinopril has been discontinued. Hyperlipidemia: Will continue with Lipitor Hypothyroidism:: Will continue with Synthroid GERD: Will continue with Protonix Obesity: Lifestyle modification education provided. Diarrhea: Overall better. Recently on Antibiotics for toothache. Currently on Lactobacillus. C. difficile was canceled DVT prophylaxis: Xarelto CODE STATUS: Full code Advance care [email or web address] minutes: Long-term acute care facility placement Time Spent Managing Pts Care (In Minutes): 55
[2021-04-01] MEDS: LEVOTHYROXINE SOD 0.075 MG TAB PO SCH (06:13)
[2021-04-01 06:40] LABS: Blood Morphology Comment NOT SEEN (NOT SEEN); Platelet Estimate ADEQ
[2021-04-01 06:57] LABS: Albumin 2.4 g/dL (3.4-5.0); Bilirubin Total 1.1 mg/dL (0.2-1.0); C-Reactive Protein 6.11 mg/L (<3.00); Ferritin 824.8 ng/mL (8-388); Magnesium 2.6 mg/dL (1.8-2.4); Potassium 4.9 mmol/L (3.5-5.1); Protein, Total 6.3 g/dL (6.4-8.2)
--- NOTE | 2021-04-01 07:29 | RAD REPORT ---
EXAM DESCRIPTION: RAD - Chest Single View - 04/01/2021 6:04 am CLINICAL HISTORY: Resp failure COMPARISON: Chest Single View dated 03/31/2021; Chest Single View dated 03/30/2021; Chest Single View dated 03/29/2021; Chest Single View dated 03/28/2021 FINDINGS: Diffuse prominence of the pulmonary interstitium. The aeration does appear improved compar ed with 03/31/2021. Some of this may reflect radiographic technique. Cardiomegaly.No acute osseous ab normality. No significant pleural effusions or pneumothorax. IMPRESSION: Pulmonary edema which is seemingly improved since 03/31/2021 but similar in appearance t o 03/30/2021. Whether this represents an actual improvement versus differences in radiographic techni que is unclear.
[2021-04-01] MEDS: INSULIN -REGULAR HUMAN 50 UNIT/0.5 ML ML SQ SCH ×4 (07:30→20:49)
[2021-04-01] MEDS: MAGNESIUM OXIDE 400 MG TAB PO SCH ×2 (09:00→21:00)
[2021-04-01] MEDS: METOPROLOL TAR 50 MG TAB PO SCH ×2 (09:00→20:47)
[2021-04-01] MEDS: SPIRONOLACTONE 25 MG TABLET PO SCH (09:05)
[2021-04-01] MEDS: ASPIRIN EC 81 MG TAB PO SCH (09:05)
[2021-04-01] MEDS: ZINC SULFATE 220 MG CAP PO SCH (09:05)
[2021-04-01] MEDS: GABAPENTIN 300 MG CAP PO SCH ×3 (09:05→20:48)
[2021-04-01] MEDS: LACTOBACILLUS/ACIDOPHILUS TAB PO SCH ×3 (09:10→20:46)
[2021-04-01] MEDS: MULTIVITAMIN TAB PO SCH (09:11)
[2021-04-01] MEDS: DOCUSATE NA 100 MG CAP PO SCH ×2 (09:13→20:48)
[2021-04-01] MEDS: ASCORBIC ACID 500 MG TABLET PO SCH ×3 (09:14→20:46)
[2021-04-01] MEDS: THIAMINE HCL 100 MG TABLET PO SCH ×2 (09:14→20:48)
[2021-04-01] MEDS: DULOXETINE 30 MG CAP PO SCH (09:14)
[2021-04-01] MEDS: VITAMIN D 1000 UNIT TAB PO SCH (09:14)
[2021-04-01] MEDS: INSULIN GLARGINE 100 UNITS/ML SQ SCH ×2 (09:15→20:49)
[2021-04-01] MEDS: DRONEDARONE 400 MG PO SCH ×2 (09:17→16:58)
[2021-04-01] MEDS: BARICITINIB 2 MG TABLET PO SCH (09:17)
--- NOTE | 2021-04-01 16:30 | P.PN ---
Subjective Date of Service: 04/01/21 (TV) Primary Care Provider: Dr. Hernandez Chief Complaint: Resp failure from COVId ISubjectively improving, Eating about 70% of meals, on high concentration of Fio2 Review of Systems Respiratory: Shortness of Breath Physical Examination - Vital Signs Temperature: 97.1 F Blood Pressure: 132/44 Pulse: 61 Respirations: 24 Pulse Ox (%): 91 - Studies Medications List Reviewed: Yes Assessment & Plan - Problems (Diagnosis) (1) COVID-19 Current Visit: Yes Status: Acute Plan: Resp failure Improving subjectively/on Max therapy
[2021-04-01] MEDS: RIVAROXABAN 20 MG TABLET PO SCH (16:58)
[2021-04-01] MEDS: ATORVASTATIN 40 MG TAB PO SCH (20:46)
[2021-04-02] MEDS: METHYLPREDNISOLONE 40 MG INJ IV SCH ×2 (00:06→08:38)
[2021-04-02 04:06] VITALS: TEMP 96.5
--- NOTE | 2021-04-02 05:57 | P.PN ---
Subjective Date of Service: 04/02/21 Primary Care Provider: Dr. Hernandez Chief Complaint: Resp failure from COVId Subjective: Improving, Doing well Physical Examination - Vital Signs Temperature: 96.5 F Blood Pressure: 150/77 Pulse: 61 Respirations: 20 Pulse Ox (%): 94 - Studies Medications List Reviewed: Yes Assessment & Plan Discharge Plan: LTAC Plan to discharge in: 24 Hours Physician Review Additional Text: Initial CXR: COMPARISON: Chest Single View dated 01/11/2019; Chest Pa And Lat (2 Views) dated 07/28/2018; CHEST SINGLE VIEW dated 11/30/2013; CHEST SINGLE VIEW dated 06/26/2012 FINDINGS: Cardiomegaly. Increased prominence of the pulmonary vasculature. No fractures seen. No focal consolidative airspace disease. IMPRESSION: Vascular congestion without overt edema. Follow-up chest x-ray 03/30/2021: COMPARISON: Chest Single View dated 03/29/2021; Chest Single View dated 03/28/2021; Chest Single View dated 03/25/2021; Chest Single View dated 03/24/2021 FINDINGS: Unchanged pulmonary edema. Cardiomegaly No acute osseous abnormality. No significant pleural effusions or pneumothorax. IMPRESSION: Pulmonary edema is similar to 03/29/2021. Physical Exam: General: Alert, In no apparent distress, Oriented x3, Cooperative HEENT: Atraumatic, Normocephalic, PERRLA, Mucous membr. moist/pink Neck: Supple Respiratory: No respiratory distress noted. Patient currently on high flow at this time. Cardiovascular: Normal pulses, Regular rate/rhythm Gastrointestinal: Normal bowel sounds, No tenderness, No masses, No rebound, No guarding Musculoskeletal: No erythema, No tenderness, No warmth Integumentary: No significant edema to the lower extremity. 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 CRP and ferritin reviewed. Patient remains on high flow at 100% with a rate of 40. Encourage incentive spirometer. Patient has finished course of remdesivir. Patient remains on baricitinib. Continue IV Solu-Medrol. Continue Aldactone. Physical therapy to continue to assess. Patient fell while going to the bedside commode yesterday. No significant pain to the right knee. Case discussed with pulmonology. Patient would benefit with long-term acute care facility placement. Patient has been accepted to long-term care [facility]. We will continue with transfer. Acute renal failure likely overdiuresis: Renal function stable. Patient now on Aldactone. Atrial fibrillation on chronic anticoagulation therapy with RVR: Continue with Multaq, Lopressor and Xarelto as recommended by cardiology. 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 Continue to adjust Lantus for better diabetic control. Sliding scale in place. Hypertension: Will continue with Lopressor. Lisinopril has been discontinued. Hyperlipidemia: Will continue with Lipitor Hypothyroidism:: Will continue with Synthroid GERD: Will continue with Protonix Obesity: Lifestyle modification education provided. Diarrhea: Overall better. Recently on Antibiotics for toothache. Currently on Lactobacillus. C. difficile was canceled DVT prophylaxis: Xarelto CODE STATUS: Full code Advance care [id number] minutes: Long-term acute care facility placement Time Spent Managing Pts Care (In Minutes): 55
[2021-04-02] MEDS: LEVOTHYROXINE SOD 0.075 MG TAB PO SCH (06:07)
[2021-04-02 06:32] LABS: Absolute Lymphocytes (CBC) 1.1 K/uL (0.7-4.9); Basophils % 0.1 % (0-1.3); Hematocrit 42.1 % (36.0-45.0); Lymphocytes % 8.4 % (15.3-44.8); MPV 9.1 fL (7.6-11.3); RBC Red Blood Cell Count 4.56 M/uL (3.86-4.86)
[2021-04-02 06:35] LABS: Albumin 2.3 g/dL (3.4-5.0); C-Reactive Protein 4.94 mg/L (<3.00); Ferritin 801.1 ng/mL (8-388); Magnesium 2.4 mg/dL (1.8-2.4); Potassium 4.9 mmol/L (3.5-5.1); Protein, Total 6.2 g/dL (6.4-8.2)
[2021-04-02] MEDS: INSULIN -REGULAR HUMAN 50 UNIT/0.5 ML ML SQ SCH ×2 (07:30→11:30)
--- NOTE | 2021-04-02 08:21 | P.PN ---
Subjective Date of Service: 04/02/21 (TV) Primary Care Provider: Dr. Hernandez Chief Complaint: Resp failure from COVId NC CW present therapy Review of Systems General: Weakness Respiratory: Shortness of Breath Physical Examination - Vital Signs Temperature: 96.5 F Blood Pressure: 139/82 Pulse: 64 Respirations: 17 Pulse Ox (%): 95 - Studies Medications List Reviewed: Yes Assessment & Plan - Problems (Diagnosis) (1) COVID-19 Current Visit: Yes Status: Acute Plan: Resp failure/labs reviewed.CXRY improivng. [place] in [place]
[2021-04-02] MEDS: ASPIRIN EC 81 MG TAB PO SCH (08:35)
[2021-04-02] MEDS: ASCORBIC ACID 500 MG TABLET PO SCH ×2 (08:35→13:06)
[2021-04-02] MEDS: SPIRONOLACTONE 25 MG TABLET PO SCH (08:36)
[2021-04-02] MEDS: THIAMINE HCL 100 MG TABLET PO SCH (08:36)
[2021-04-02] MEDS: MULTIVITAMIN TAB PO SCH (08:36)
[2021-04-02] MEDS: VITAMIN D 1000 UNIT TAB PO SCH (08:36)
[2021-04-02] MEDS: METOPROLOL TAR 50 MG TAB PO SCH (08:36)
[2021-04-02] MEDS: DOCUSATE NA 100 MG CAP PO SCH (08:36)
[2021-04-02] MEDS: MAGNESIUM OXIDE 400 MG TAB PO SCH (08:37)
[2021-04-02] MEDS: GABAPENTIN 300 MG CAP PO SCH ×2 (08:37→13:06)
[2021-04-02] MEDS: DULOXETINE 30 MG CAP PO SCH (08:37)
[2021-04-02] MEDS: LACTOBACILLUS/ACIDOPHILUS TAB PO SCH ×2 (08:38→13:06)
[2021-04-02] MEDS: BARICITINIB 2 MG TABLET PO SCH (08:38)
[2021-04-02] MEDS: ZINC SULFATE 220 MG CAP PO SCH (08:38)
[2021-04-02] MEDS: INSULIN GLARGINE 100 UNITS/ML SQ SCH (08:39)
[2021-04-02] MEDS: DRONEDARONE 400 MG PO SCH (08:39)
[2021-04-02 09:02] LABS: Blood Morphology Comment NOT SEEN (NOT SEEN); Platelet Estimate ADEQ
[2021-04-02 11:29] VITALS: O2SAT 99
--- NOTE | 2021-04-02 13:42 | P.DS ---
Admission Date: 03/21/21 Discharge Date: 04/02/21 Primary Care Provider: Dr. Hernandez Disposition: ROUTINE DISCHARGE Discharge Condition: GOOD Reason for Admission: Resp failure from COVId Consultations: Pulmonary-Dr. Thrasher Cardiology-Dr. Burnette Procedures: Initial CXR: COMPARISON: Chest Single View dated 01/11/2019; Chest Pa And Lat (2 Views) dated 07/28/2018; CHEST SINGLE VIEW dated 11/30/2013; CHEST SINGLE VIEW dated 06/26/2012 FINDINGS: Cardiomegaly. Increased prominence of the pulmonary vasculature. No fractures seen. No focal consolidative airspace disease. IMPRESSION: Vascular congestion without overt edema. Follow-up chest x-ray 03/30/2021: COMPARISON: Chest Single View dated 03/29/2021; Chest Single View dated 021; Chest Single View dated 03/25/2021; Chest Single View dated 03/24/2021 FINDINGS: Unchanged pulmonary edema. Cardiomegaly No acute osseous abnormality. No significant pleural effusions or pneumothorax. IMPRESSION: Pulmonary edema is similar to 03/29/2021. 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 Patient presented to the emergency room with increasing shortness of breath. She had gone to urgent care earlier and they noted that she was slightly hypoxic. Patient denies any fever, chills, nausea or vomiting. Several family embers have tested positive for Covid. She was worried that she had a Covid infection. She denies any significant chest pain. In the ER patient was evaluated. Vital signs stable. Patient on room air at this time. Chest x-ray shows some vascular congestion. White count 5.8, hemoglobin 14.7. Platelet count 123. Sodium 134, potassium 4.2. BUN of 11, creatinine 0.7 with a GFR 75. Glucose 344. Troponin 0 0.12 BNP 372. AST 32, ALT 28. CRP and ferritin pending. Patient was positive for Covid. EKG shows no significant ST changes. Patient admitted for further evaluation and treatment. Patient reports that she had been taking Lasix in the past but this was discontinued by cardiology. She also reports patient had cardiac stress test several months ago which was unremarkable. Hospital Course: She presented with shortness of breath secondary to acute on chronic diastolic CHF with elevated troponin likely ischemic demand complicated with acute respiratory failure with hypoxia related to COVID-19 pneumonia. The patient was admitted for treatment. Patient was seen and evaluated by pulmonology and cardiology. No cardiac intervention was required. Patient has finished course of remdesivir. Patient remains on IV Solu-Medrol and baricitinib. Patient currently on high flow. Patient was evaluated for long-term acute care facility placement. Patient has been accepted. Patient will be transferred to long-term acute care facility to continue care. During the course of her stay patient had acute renal failure likely from overdiuresis. Renal function now stable. Patient currently on Aldactone. Patient has atrial fibrillation on chronic anticoagulation therapy. Patient had episode of RVR. Patient now stable. Patient remains on Multaq, Lopressor and Xarelto. Patient was seen and evaluated by cardiology. No further intervention required. Patient with diabetes mellitus type 2 insulin-dependent with hyperglycemia. Patient remains on Lantus and sliding scale. Patient with hypertension. Patient remains on Lopressor. Patient previously on lisinopril. This has been discontinued. Patient with hyperlipidemia. Patient will continue with Lipitor. Patient with hypothyroidism. Patient will continue with Synthroid daily. Patient with GERD. Patient will continue with Protonix. Vital Signs/Physical Exam: Temp Pulse Resp BP Pulse Ox 96.5 F L 61 20 150/77 H 94 04/02/21 13:40 04/02/21 13:40 04/02/21 13:40 04/02/21 13:40 04/02/21 13:40 General: Alert, In no apparent distress, Oriented x3, Cooperative HEENT: Atraumatic Neck: Supple Respiratory: Clear to auscultation bilaterally, Other (Currently on high flow) Cardiovascular: Regular rate/rhythm Gastrointestinal: Normal bowel sounds, No tenderness, No masses, No rebound, No guarding Musculoskeletal: No erythema, No tenderness, No warmth Integumentary: No tenderness/swelling Neurological: Normal speech, Normal strength at 5/5 x4 extr, Normal tone, Normal affect Laboratory Data at Discharge: WBC 13.10 K/uL (4.3-10.9) H 04/02/21 05:56 Hgb 14.4 g/dL (12.0-15.0) 04/02/21 05:56 Hct 42.1 % (36.0-45.0) 04/02/21 05:56 Plt Count 227 K/uL (152-406) 04/02/21 05:56 PT 11.9 SECONDS (9.5-12.5) 03/20/21 13:08 INR 1.03 03/20/21 13:08 Sodium 135 mmol/L (136-145) L 04/02/21 05:56 Potassium 4.9 mmol/L (3.5-5.1) 04/02/21 05:56 BUN 25 mg/dL (7-18) H 04/02/21 05:56 Creatinine 0.77 mg/dL (0.55-1.3) 04/02/21 05:56 Glucose 156 mg/dL (74-106) H 04/02/21 05:56 Phosphorus 4.6 mg/dL (2.5-4.9) 03/30/21 05:05 Magnesium 2.4 mg/dL (1.8-2.4) 04/02/21 05:56 Total Bilirubin 1.0 mg/dL (0.2-1.0) 04/02/21 05:56 AST 43 U/L (15-37) H 04/02/21 05:56 ALT 36 U/L (12-78) 04/02/21 05:56 Alkaline Phosphatase 175 U/L (45-117) H 04/02/21 05:56 Troponin I 0.24 ng/mL (0.0-0.045) H 03/21/21 03:55 Triglycerides 127 mg/dL (<150) 03/21/21 05:12 Cholesterol 143 mg/dL (<200) 03/21/21 05:12 HDL Cholesterol 58 mg/dL (40-60) 03/21/21 05:12 Cholesterol/HDL Ratio 2.47 03/21/21 05:12 Home Medications: Atorvastatin Calcium [Lipitor*] 40 mg PO BEDTIME 08/26/18 Cholecalciferol (Vitamin D3) [Vitamin D 1000 Iu Tab*] 1,000 unit PO BID 08/26/18 Dronedarone [Multaq*] 400 mg PO BID 08/26/18 Dulaglutide [Trulicity] 3 mg SQ DIRECTED 08/26/18 Insulin Degludec [Tresiba Flextouch U-100] 0 unit SQ DAILY 08/26/18 Levothyroxine Sodium [Synthroid] 150 mcg PO DAILY 08/26/18 Magnesium Oxide [Magnesium] 400 mg PO BID 08/26/18 Metoprolol Tartrate [Lopressor*] 50 mg PO BID 08/26/18 Potassium Chloride [Klor-Con M20] 20 meq PO BID 08/26/18 Rivaroxaban [Xarelto*] 20 mg PO DAILY AFTER SUPPER 08/26/18 lisinopriL [Prinivil*] 5 mg PO DAILY 08/26/18 Gabapentin [Neurontin] 600 mg PO TID 03/20/21 Multivitamin 1 each PO DAILY 03/20/21 De Beque-3/Dha/Epa/Fish Oil [Fish Oil 1,000 mg Softgel] 1 each PO DAILY 03/20/21 Zolpidem Tartrate 10 mg PO BEDTIME PRN 03/20/21 Physician Discharge Instructions: She presented with shortness of breath secondary to acute on chronic diastolic CHF with elevated troponin likely ischemic demand complicated with acute respiratory failure with hypoxia related to COVID-19 pneumonia. The patient was admitted for treatment. Patient was seen and evaluated by pulmonology and cardiology. No cardiac intervention was required. Patient has finished course of remdesivir. Patient remains on IV Solu-Medrol and baricitinib. Patient currently on high flow. Patient was evaluated for long-term acute care facility placement. Patient has been accepted. Patient will be transferred to long-term acute care facility to continue care. During the course of her stay patient had acute renal failure likely from overdiuresis. Renal function now stable. Patient currently on Aldactone. Patient has atrial fibrillation on chronic anticoagulation therapy. Patient had episode of RVR. Patient now stable. Patient remains on Multaq, Lopressor and Xarelto. Patient was seen and evaluated by cardiology. No further intervention required. Patient with diabetes mellitus type 2 insulin-dependent with hyperglycemia. Patient remains on Lantus and sliding scale. Patient with hypertension. Patient remains on Lopressor. Patient previously on lisinopril. This has been discontinued. Patient with hyperlipidemia. Patient will continue with Lipitor. Patient with hypothyroidism. Patient will continue with Synthroid daily. Patient with GERD. Patient will continue with Protonix. Diet: ADA Activity: Fall precautions Followup: Elise Hernandez DO, DO [Primary Care Provider] - Time spent managing pt's care (in minutes): 55
[2021-04-02 15:22] VITALS: BP 126/71
== END 2021-04-02 16:15 | DRG 177 ==
LOC: ER 12:07 → ERHOLD 15:14 → 3RD-ICU 03-21 07:32 → OBSVTOIN 03-21 12:05
PROVIDERS: ADMIT Family Medicine; ATTEND Family Medicine
PROC: 5A09457 Assistance with Respiratory Ventilation, 24-96 Consecutive Hours, Continuous Positive Airway Pressure (ICD-10-PCS; principal; 2021-03-26)
DX: U07.1 COVID-19 (principal); J12.82 Pneumonia due to coronavirus disease 2019; J96.01 Acute respiratory failure with hypoxia; I50.33 Acute on chronic diastolic (congestive) heart failure; I24.8 Other forms of acute ischemic heart disease; N17.9 Acute kidney failure, unspecified; Z68.42 Body mass index [BMI] 45.0-49.9, adult; I11.0 Hypertensive heart disease with heart failure; I48.91 Unspecified atrial fibrillation; E11.65 Type 2 diabetes mellitus with hyperglycemia; E78.5 Hyperlipidemia, unspecified; E03.9 Hypothyroidism, unspecified; K21.9 Gastro-esophageal reflux disease without esophagitis; R19.7 Diarrhea, unspecified; E66.9 Obesity, unspecified; Z79.01 Long term (current) use of anticoagulants
CPT/HCPCS: 36415; 71045; 80048; 80053; 80061; 80076; 81003; 82248; 82550; 82553; 82728; 82947; 83735; 83880; 84100; 84145; 84439; 84443; 84484; 85025; 85610; 86140; 87040; 93005; 93306; 94002; 94003; 94010; 94660; 94760; 94762; 97110; 97112; 97116; 97161; 97530; 99285; G0378; J0282; J1160; J1815; J1940; J2920; J7050; J7060; J7512; U0003